=== PATIENT | male | born 1930 | race Caucasian/White ===

== ENCOUNTER 2016-05-11 12:21 | Observation (INO) | payer OTHER ==
[~2016-05-11] VITALS: Ht 177.8 cm; Wt 73.6 kg
[~2016-05-11 12:21] MED LIST: CALC500C70 PO; FINA5TAB PO; LEVO50TA PO; MISCTAB88 PO; SIMV-150 PO; TAMS0.4C38 PO
[2016-05-11] MEDS ORDERED: ALBUT/IPRATROP 3MG/0.5MG NEB 3 ML VIAL INH STA ×2 (12:51→16:09)
[2016-05-11 13:51] LABS: BASO % 0.3 %; BASO ABS # 0.03 K/uL (0-0.2); COMPLETE YES; HEMATOCRIT 49.6 % (42-52); IG% 0.3 %; LYMPH % 18.2 %; LYMPH ABS # 1.85 K/uL (1.2-3.4); MEAN CELL VOLUME 90.2 fL (80-100); MEAN CORPUSCULAR HEMOGLOBIN 32.2 pg (25-34); MEAN CORPUSCULAR HGB CONC 35.7 g/dl (32-36); MEAN PLATELET VOLUME 10.6 fL (7.4-10.4); MONO % 19.1 %; NEUT % 59.1 %; PLATELET COUNT 222 K/uL (130-400); WHITE BLOOD COUNT 10.19 K/uL (4.8-10.8)
[2016-05-11 14:11] LABS: ALT/SGPT 27 U/L (12-78); AST/SGOT 18 U/L (15-37); BLOOD UREA NITROGEN 14 mg/dl (7-18); CALCIUM 8.4 mg/dl (8.5-10.1); CARBON DIOXIDE 26 mmol/L (21-32); CHLORIDE 108 mmol/L (98-107); GLUCOSE 116 mg/dl (70-99); POTASSIUM 3.8 mmol/L (3.5-5.1); SODIUM 143 mmol/L (136-145)
--- NOTE | 2016-05-11 14:12 | DIAGNOSTIC IMAGING REPORT ---
CHEST 2 VIEWS ROUTINE CLINICAL HISTORY: Congestion. Cough. COMPARISON STUDY: No previous studies for comparison. FINDINGS: There is a 2.6 cm nodular opacity within the right midlung. Lungs are mildly diminished. There is no pneumothorax or pleural effusion. Pulmonary vascularity is normal. Cardiac size is normal. Mediastinal contours are normal. IMPRESSION: 2.6 cm nodular right midlung opacity. This could reflect a pulmonary nodule or small focus of pneumonia. If clinical suspicion for pneumonia, follow-up chest radiograph in one month is recommended to ensure resolution. Otherwise, a chest CT is recommended to evaluate for pulmonary nodule. Electronically signed by: Jose Kapadia M.D. 05/11/2016 2:10 PM Dictated Date/Time: 05/11/2016 2:08 PM
[2016-05-11 14:16] LABS: ALB/GLOB RATIO 1.1 (0.9-2); ALKALINE PHOSPHATASE 44 U/L (45-117); CKMB/CK RATIO 1.9 (0-3.0)
[2016-05-11] MEDS ORDERED: OPTIRAY 320 IV PRN (15:15)
[2016-05-11] MEDS ORDERED: CYAN500T PO (15:40)
--- NOTE | 2016-05-11 15:40 | DIAGNOSTIC IMAGING REPORT ---
CT ANGIOGRAPHY OF THE CHEST, PULMONARY EMBOLUS PROTOCOL CLINICAL HISTORY: Hypoxia, cough and congestion. Abnormal chest radiograph. COMPARISON STUDY: Chest radiograph performed earlier today. TECHNIQUE: Following IV administration of 100 mL of Optiray-320, helical axial images of the chest were obtained utilizing the pulmonary embolus protocol. Maximal intensity projections and sagittal and coronal reformats were viewed on an independent 3D workstation. IV contrast was administered without complication. CT DOSE: 321.28 mGy.cm FINDINGS: No pulmonary emboli are identified. There is no evidence of thoracic aortic dissection. The heart is mildly enlarged. There is no pericardial effusion. No pathologically enlarged thoracic lymph nodes are present. Note is made of a 3.5 x 1.9 cm subpleural groundglass opacity within the anterior segment of the right upper lobe. There is minimal tree-in-bud nodules within the right middle lobe and right lower lobe as well. Multifocal mucus plugging and bronchial wall thickening is noted. There is no pneumothorax or pleural effusion. There is no cavitation. A few gallstones are noted within the gallbladder. IMPRESSION: 1. No pulmonary emboli identified. 2. 3.5 x 1.9 cm subpleural airspace opacity within the right upper lobe suggestive of a small area of pneumonia. Follow-up chest radiograph in one month to ensure resolution is recommended. Minimal tree-in-bud opacities within the right upper, middle and lower lobes suggest an infectious process as well. 3. Diffuse bronchial wall thickening with multifocal mucus plugging, most evident within the lower lobes. 4. Cholelithiasis. Electronically signed by: Jose Kapadia M.D. 05/11/2016 3:39 PM Dictated Date/Time: 05/11/2016 3:28 PM
[2016-05-11] MEDS ORDERED: LEVAQUIN 750MG / 150ML D5W IV STA (15:59)
--- NOTE | 2016-05-11 18:24 | EMERGENCY ROOM VISIT NOTE ---
History Report prepared by Gertrudis: Sparkle Valdovinos Under the Supervision of: Dr. Alexis Giullen M.D. First contact with patient: 12:43 Chief Complaint: CONGESTION Stated Complaint: CONGESTION, COUGH Nursing Triage Summary: pt to the ED with a cough that is nonproductive since wednesday no SOB no c/o pain History of Present Illness The patient is a 85 year old male who presents to the Emergency Room with complaints of a persistent cough which started on 4 days ago. The patient reports that he has no history of lung problems and is not on oxygen. He denies shortness of breath with exertion. He denies chest pain with inspiration. He reports that he quit smoking over 60 years ago. He also reports he is experiencing slight diarrhea. Pt denies LOC, headache, fevers, chills, diaphoresis, visual changes, neck pain, chest pain, nausea, vomiting, abdominal pain, back pain, melena, hematochezia, urinary symptoms, numbness, weakness, lymphadenopathy, rash, or other complaints. Source of History: patient Onset: 4 days ago Position: other (global) Quality: other (coughing) Timing: other (persistent) Associated Symptoms: + diarrhea Review of Systems See HPI for pertinent positives and negatives. A total of ten systems were reviewed and were otherwise negative. Past Medical & Surgical Medical Problems: (1) Hypercholesteremia (2) Hyperlipemia Family History Non-contributory secondary to age. Social History Smoking Status: Former Smoker Drug Use: none Marital Status: Housing Status: lives with family Occupation Status: retired Current/Historical Medications Scheduled Calcium/Vitamin D (Os-Bairon 500 Plus D), 1 TAB PO QAM Cyanocobalamin (Vitamin B-12), 500 MCG PO DAILY Finasteride (Proscar), 5 MG PO QAM Levothyroxine Sodium (Synthroid), 50 MCG PO QAM Misc Natural Products (Osteo Bi-Flex Triple Stre), 1 TAB PO HS Simvastatin (Simvastatin), 10 MG PO QAM Tamsulosin Hcl (Flomax), 0.4 MG PO HS Allergies Coded Allergies: No Known Allergies (Unverified , 05/11/16) Physical Exam Vital Signs Date Time Temp Pulse Resp B/P Pulse Ox O2 Delivery O2 Flow Rate FiO2 05/11/16 17:31 88 05/11/16 17:21 87 20 118/72 94 Nasal Cannula 4.0 2/20/17 15:27 83 20 122/64 93 Nasal Cannula 2.0 05/11/16 14:23 88 18 113/65 90 Room Air 05/11/16 13:24 93 05/11/16 12:38 Nasal Cannula 2.0 05/11/16 12:28 90 Room Air 05/11/16 12:25 93 18 121/81 90 Room Air Physical Exam GENERAL: Awake, alert, tired-appearing, in no distress HENT: Normocephalic, atraumatic. Oropharynx unremarkable. EYES: Normal conjunctiva. Sclera non-icteric. NECK: Supple. No nuchal rigidity. FROM. No JVD. RESPIRATORY: Clear to auscultation. Moderate non-productive cough present. CARDIAC: Regular rate, normal rhythm. Extremities warm and well perfused. Pulses equal. ABDOMEN: Soft, non-distended. No tenderness to palpation. No rebound or guarding. No masses. RECTAL: Deferred. MUSCULOSKELETAL: Chest examination reveals no tenderness. The back is symmetrical on inspection without obvious abnormality. There is no CVA tenderness to palpation. No joint edema. LOWER EXTREMITIES: Calves are equal size bilaterally and non-tender. No edema. No discoloration. NEURO: Normal sensorium. No sensory or motor deficits noted. SKIN: No rash or jaundice noted. Medical Decision & Procedures ER Provider Diagnostic Interpretation: Radiology results as stated below per my review and radiologist interpretation. CHEST 2 VIEWS ROUTINE CLINICAL HISTORY: Congestion. Cough. COMPARISON STUDY: No previous studies for comparison. FINDINGS: There is a 2.6 cm nodular opacity within the right midlung. Lungs are mildly diminished. There is no pneumothorax or pleural effusion. Pulmonary vascularity is normal. Cardiac size is normal. Mediastinal contours are normal. IMPRESSION: 2.6 cm nodular right midlung opacity. This could reflect a pulmonary nodule or small focus of pneumonia. If clinical suspicion for pneumonia, follow-up chest radiograph in one month is recommended to ensure resolution. Otherwise, a chest CT is recommended to evaluate for pulmonary nodule. Electronically signed by: Jose Kapadia M.D. 05/11/2016 2:[address] ANGIOGRAPHY OF THE CHEST, PULMONARY EMBOLUS PROTOCOL CLINICAL HISTORY: Hypoxia, cough and congestion. Abnormal chest radiograph. COMPARISON STUDY: Chest radiograph performed earlier today. TECHNIQUE: Following IV administration of 100 mL of Optiray-320, helical axial images of the chest were obtained utilizing the pulmonary embolus protocol. Maximal intensity projections and sagittal and coronal reformats were viewed on an independent 3D workstation. IV contrast was administered without complication. CT DOSE: 321.28 mGy.cm FINDINGS: No pulmonary emboli are identified. There is no evidence of thoracic aortic dissection. The heart is mildly enlarged. There is no pericardial effusion. No pathologically enlarged thoracic lymph nodes are present. Note is made of a 3.5 x 1.9 cm subpleural groundglass opacity within the anterior segment of the right upper lobe. There is minimal tree-in-bud nodules within the right middle lobe and right lower lobe as well. Multifocal mucus plugging and bronchial wall thickening is noted. There is no pneumothorax or pleural effusion. There is no cavitation. A few gallstones are noted within the gallbladder. IMPRESSION: 1. No pulmonary emboli identified. 2. 3.5 x 1.9 cm subpleural airspace opacity within the right upper lobe suggestive of a small area of pneumonia. Follow-up chest radiograph in one month to ensure resolution is recommended. Minimal tree-in-bud opacities within the right upper, middle and lower lobes suggest an infectious process as well. 3. Diffuse bronchial wall thickening with multifocal mucus plugging, most evident within the lower lobes. 4. Cholelithiasis. Electronically signed by: Jose Kapadia M.D. 05/11/2016 3:39 PM Laboratory Results 05/11/16 13:15 Red Blood Count 5.50, Mean Corpuscular Volume 90.2, Mean Corpuscular Hemoglobin 32.2, Mean Corpuscular Hemoglobin Concent 35.7, Mean Platelet Volume 10.6, Neutrophils (%) (Auto) 59.1, Lymphocytes (%) (Auto) 18.2, Monocytes (%) (Auto) 19.1, Eosinophils (%) (Auto) 3.0, Basophils (%) (Auto) 0.3, Neutrophils # (Auto ) 6.02, Lymphocytes # (Auto) 1.85, Monocytes # (Auto) 1.95, Eosinophils # (Auto ) 0.31, Basophils # (Auto) 0.03 05/11/16 13:15 Test 05/11/16 13:05 05/11/16 13:15 Influenza Type A Antigen Neg for Influ A (NEG) Influenza Type B Antigen Neg for Influ B (NEG) White Blood Count 10.19 K/uL (4.8-10.8) Red Blood Count 5.50 M/uL (4.7-6.1) Hemoglobin 17.7 g/dL (14.0-18.0) Hematocrit 49.6 % (42-52) Mean Corpuscular Volume 90.2 fL (80-100) Mean Corpuscular Hemoglobin 32.2 pg (25-34) Mean Corpuscular Hemoglobin Concent 35.7 g/dl (32-36) Platelet Count 222 K/uL (130-400) Mean Platelet Volume 10.6 fL (7.4-10.4) Neutrophils (%) (Auto) 59.1 % Lymphocytes (%) (Auto) 18.2 % Monocytes (%) (Auto) 19.1 % Eosinophils (%) (Auto) 3.0 % Basophils (%) (Auto) 0.3 % Neutrophils # (Auto) 6.02 K/uL (1.4-6.5) Lymphocytes # (Auto) 1.85 K/uL (1.2-3.4) Monocytes # (Auto) 1.95 K/uL (0.11-0.59) Eosinophils # (Auto) 0.31 K/uL (0-0.5) Basophils # (Auto) 0.03 K/uL (0-0.2) RDW Standard Deviation 42.8 fL (36.4-46.3) RDW Coefficient of Variation 12.8 % (11.5-14.5) Immature Granulocyte % (Auto) 0.3 % Immature Granulocyte # (Auto) 0.03 K/uL (0.00-0.02) Anion Gap 9.0 mmol/L (3-11) Est Creatinine Clear Calc Drug Dose 50.7 ml/min Estimated GFR () 70.6 Estimated GFR (Non- 60.9 BUN/Creatinine Ratio 13.0 (10-20) Calcium Level 8.4 mg/dl (8.5-10.1) Total Bilirubin 0.5 mg/dl (0.2-1) Aspartate Amino Transf (AST/SGOT) 18 U/L (15-37) Alanine Aminotransferase (ALT/SGPT) 27 U/L (12-78) Alkaline Phosphatase 44 U/L (45-117) Total Creatine Kinase 158 U/L (39-308) Creatine Kinase MB 3.0 ng/ml (0.5-3.6) Creatine Kinase MB Ratio 1.9 (0-3.0) Troponin I < 0.015 ng/ml (0-0.045) Pro-B-Type Natriuretic Peptide 341 pg/ml (0-1800) Total Protein 7.2 gm/dl (6.4-8.2) Albumin 3.8 gm/dl (3.4-5.0) Globulin 3.4 gm/dl (2.5-4.0) Albumin/Globulin Ratio 1.1 (0.9-2) Laboratory results reviewed by me Medications Administered Medications (Trade) Dose Ordered Sig/Aram Route Start Time Stop Time Status Last Admin Dose Admin Albuterol/ Ipratropium (Duoneb) 3 ml NOW STAT INH 05/11/16 12:51 05/11/16 12:53 DC 05/11/16 13:08 3 ML Levofloxacin (Levaquin / D5W) 750 mg NOW STAT IV 05/11/16 15:59 05/11/16 16:00 DC 05/11/16 16:11 750 MG Albuterol/ Ipratropium (Duoneb) 3 ml NOW STAT INH 05/11/16 16:09 05/11/16 16:10 DC 05/11/16 16:13 3 ML ECG Indication: other (cough) Rate (beats per minute): 83 Rhythm: normal sinus Findings: no acute ischemic change, left axis deviation, no ectopy, other ( inferior and septal Q waves) ED Course 1251: The patient was evaluated in room C5. A complete history and physical exam was performed. Duoneb 3 ml INH. 1507: I reevaluated the patient. He is doing well. He still requires a cannula for oxygen. 1559: Levofloxacin 750 mg IV. 1607: I reassessed the patient. He will be given another breathing treatment. I discussed the test results and treatment plan with him. The patient will be evaluated for further management. 1609: Duoneb 3 ml INH. 1619: I discussed the patient's case with Dr. [place] [facility] [place] The patient will be evaluated for further management. Medical Decision Triage Nursing notes reviewed. The patient's presentation and history were concerning for respiratory difficulty. Etiologies such as pneumonia, COPD, reactive airway disease, CHF, cardiac ischemia, pulmonary embolism, pneumothorax, musculoskeletal, infections, gastrointestinal, as well as others were entertained. The patient was evaluated. He was treated with a DuoNeb and felt much better. The patient had chest x-ray performed and there were some concerns on the right side. His CBC, chemistry panel, cardiac markers and other blood work was unremarkable. BNP was negative. The patient was informed. The patient underwent CT imaging and this showed mucus plugging bilaterally as well as a right-sided pneumonia. He was given a second nebulizer treatment. The patient had a pulse oximetry of 90% and did have some increased work of breathing. Because of all that further evaluation and management was felt to be appropriate in the hospital. The patient was in agreement. He was given IV Levaquin. Medicine was consulted and the patient was evaluated. The chart was completed utilizing [employer] Speech voice recognition software. Grammatical errors, random word insertions, pronoun errors, and incomplete sentences are an occasional consequence of this system due to software limitations, ambient noise, and hardware issues. Any formal questions or concerns about the content, text, or information contained within the body of this dictation should be directly addressed to the physician for clarification. Consults Time Called: 1617 Consulting Physician: Dr. Kimi ELLIS Hospitalist Returned Call: 1619 We discussed the patient's case. The patient will be evaluated for further management. Impression Primary Impression: Pneumonia Additional Impression: Hypoxia Scribe Attestation The scribe's documentation has been prepared under my direction and personally reviewed by me in its entirety. I confirm that the note above accurately reflects all work, treatment, procedures, and medical decision making performed by me. Departure Information Dispostion Being Evaluated By Hospitalist Referrals Jolie Ledesma M.D. (PCP) Patient Instructions My [facility] Problem Qualifiers
--- NOTE | 2016-05-11 18:50 | Medical Student: [facility] ---
Med Student History & Physical Date & Time of Service: May 11, 2016 at 18:27 Chief Complaint: Congestion, Cough Primary Care Physician: Jolie Ledesma M.D. History of Present Illness Source: patient 85y/o male presents after four days of worsening cough and congestion. The patient states that he has had four days of dry cough, producing no sputum, that has continually gotten worse. He also admits to some minor shortness of breath, especially following coughing episodes. The patient is usually very active working in his automobile garage, but has been less active in recent days due to the cough. He has tried various cough syrups to alleviate the symptoms and states that they helped some to temporarily relieve his symptoms. In addition to the cough he has had congestion, runny nose, and some diarrhea. He has no history of PNA or recent hospitalizations. He lives at home with his . The patient denies chest pain, palpitations, body aches, fever/chills, sore throat, abdominal pain, nausea, vomiting, and blood in stool. Past Medical/Surgical History Medical Problems: (1) BPH 2. Hypothyroid 3. High cholesterol 4. Neuropathy Surgical history: 1. Left fifth finger removed following accident Family History denies Social History Smoking Status: Former Smoker Alcohol Use: occasionally Drug Use: none Marital Status: Housing status: lives with significant other Occupational Status: retired Allergies Coded Allergies: No Known Allergies (Unverified , 05/11/16) Medications Calcium/Vitamin D (Os-Bairon 500 Plus D), 1 TAB PO QAM Cyanocobalamin (Vitamin B-12), 500 MCG PO DAILY Finasteride (Proscar), 5 MG PO QAM Levothyroxine Sodium (Synthroid), 50 MCG PO QAM Misc Natural Products (Osteo Bi-Flex Triple Stre), 1 TAB PO HS Simvastatin (Simvastatin), 10 MG PO QAM Tamsulosin Hcl (Flomax), 0.4 MG PO HS Review of Systems Constitutional: No chills, No fever, No sweats, No weakness, No weight loss Eyes: No discharge, No redness, No worsening of vision ENT: + nasal symptoms, No hearing loss, No sore throat, No trouble swallowing Respiratory: + cough, + shortness of breath, No dyspnea at rest, No sputum, No wheezing Cardiovascular: No chest pain, No edema, No palpitations Abdomen: + diarrhea, No GI bleeding, No constipation, No nausea, No pain, No vomiting Musculoskeletal: No calf pain, No joint pain, No muscle pain, No swelling Neurologic: No memory loss, No paralysis, No weakness Psychiatric: No anxiety, No depression symptoms, No substance abuse Integumentary: No itch, No new/changing skin lesions, No rash Physical Exam Vital Signs (24 Hours) Date Time Temp Pulse Resp B/P Pulse Ox O2 Delivery O2 Flow Rate FiO2 05/11/16 17:31 88 05/11/16 17:21 87 20 118/72 94 Nasal Cannula 4.0 05/11/16 15:27 83 20 122/64 93 Nasal Cannula 2.0 05/11/16 14:23 88 18 113/65 90 Room Air 05/11/16 13:24 93 05/11/16 12:38 Nasal Cannula 2.0 05/11/16 12:28 90 Room Air 05/11/16 12:25 93 18 121/81 90 Room Air General Appearance: WD/WN, no apparent distress, + mild distress Head: atraumatic Eyes: normal inspection, EOMI ENT: hearing grossly normal, pharynx normal Neck: supple, no adenopathy, trachea midline Respiratory/Chest: chest non-tender, no respiratory distress, no accessory muscle use, + wheezing (bilateral, worse on right), + pertinent finding (course breath sounds) Cardiovascular: regular rate, rhythm, no edema, no murmur Abdomen/GI: normal bowel sounds, non tender, soft Back: normal inspection Extremities/Musculoskelatal: no calf tenderness, no pedal edema Neurologic/Psych: alert, normal mood/affect, oriented x 3 Skin: normal color, warm/dry, no rash Diagnostics Laboratory Results Results Past 24 Hours Test 05/11/16 13:05 05/11/16 13:15 Range/Units Influenza Type A Antigen Neg for Influ A NEG Influenza Type B Antigen Neg for Influ B NEG White Blood Count 10.19 4.8-10.8 K/uL Red Blood Count 5.50 4.7-6.1 M/uL Hemoglobin 17.7 14.0-18.0 g/dL Hematocrit 49.6 42-52 % Mean Corpuscular Volume 90.2 80-100 fL Mean Corpuscular Hemoglobin 32.2 25-34 pg Mean Corpuscular Hemoglobin Concent 35.7 32-36 g/dl Platelet Count 222 130-400 K/uL Mean Platelet Volume 10.6 7.4-10.4 fL Neutrophils (%) (Auto) 59.1 % Lymphocytes (%) (Auto) 18.2 % Monocytes (%) (Auto) 19.1 % Eosinophils (%) (Auto) 3.0 % Basophils (%) (Auto) 0.3 % Neutrophils # (Auto) 6.02 1.4-6.5 K/uL Lymphocytes # (Auto) 1.85 1.2-3.4 K/uL Monocytes # (Auto) 1.95 0.11-0.59 K/uL Eosinophils # (Auto) 0.31 0-0.5 K/uL Basophils # (Auto) 0.03 0-0.2 K/uL RDW Standard Deviation 42.8 36.4-46.3 fL RDW Coefficient of Variation 12.8 11.5-14.5 % Immature Granulocyte % (Auto) 0.3 % Immature Granulocyte # (Auto) 0.03 0.00-0.02 K/uL Sodium Level 143 136-145 mmol/L Potassium Level 3.8 3.5-5.1 mmol/L Chloride Level 108 98-107 mmol/L Carbon Dioxide Level 26 21-32 mmol/L Anion Gap 9.0 3-11 mmol/L Blood Urea Nitrogen 14 7-18 mg/dl Creatinine 1.10 0.60-1.40 mg/dl Est Creatinine Clear Calc Drug Dose 50.7 ml/min Estimated GFR () 70.6 Estimated GFR (Non- 60.9 BUN/Creatinine Ratio 13.0 10-20 Random Glucose 116 70-99 mg/dl Calcium Level 8.4 8.5-10.1 mg/dl Total Bilirubin 0.5 0.2-1 mg/dl Aspartate Amino Transf (AST/SGOT) 18 15-37 U/L Alanine Aminotransferase (ALT/SGPT) 27 12-78 U/L Alkaline Phosphatase 44 45-117 U/L Total Creatine Kinase 158 39-308 U/L Creatine Kinase MB 3.0 0.5-3.6 ng/ml Creatine Kinase MB Ratio 1.9 0-3.0 Troponin I < 0.015 0-0.045 ng/ml Pro-B-Type Natriuretic Peptide 341 0-1800 pg/ml Total Protein 7.2 6.4-8.2 gm/dl Albumin 3.8 3.4-5.0 gm/dl Globulin 3.4 2.5-4.0 gm/dl Albumin/Globulin Ratio 1.1 0.9-2 Microbiology Results 05/11/16 Blood Culture, Received Pending 05/11/16 Blood Culture, Received Pending Diagnostic Radiology CXR: IMPRESSION: 2.6 cm nodular right midlung opacity. This could reflect a pulmonary nodule or small focus of pneumonia. If clinical suspicion for pneumonia, follow-up chest radiograph in one month is recommended to ensure resolution. Otherwise, a chest CT is recommended to evaluate for pulmonary nodule. CTA of CHEST: IMPRESSION: 1. No pulmonary emboli identified. 2. 3.5 x 1.9 cm subpleural airspace opacity within the right upper lobe suggestive of a small area of pneumonia. Follow-up chest radiograph in one month to ensure resolution is recommended. Minimal tree-in-bud opacities within the right upper, middle and lower lobes suggest an infectious process as well. 3. Diffuse bronchial wall thickening with multifocal mucus plugging, most evident within the lower lobes. 4. Cholelithiasis. EKG 83bpm at NSR. Left axis deviation, inferior infarct. No previous ecg for comparison Impression Assessment and Plan 85y/o male with a four day history of worsening cough and shortness of breath, CXR and Chest CT showing signs of PNA. The patient lives at home and has not been hospitalized recently. He shows no signs of immunocompromise and will be treated for community acquired PNA. His CURB-65 score is one, and he will be admitted for inpatient treatment and IV antibiotics. The patient is ambulating well and shows no sign of weakness or disability. Therefore, no PT/OT consult was ordered. 1. Community acquired pneumonia- Administer Levofloxacin 750mg IV daily. Continue with Albuterol/Ipratropium 3ml INH for symptoms of cough and shortness of breath. Continue to monitor vital signs and labs, including kidney function. O2 by nasal canula as needed for low O2 sats and symptoms. The imaging studies suggested a one month follow up of CXR to monitor the lung opacity in the right mid lung. Blood cultures pending. 2. High cholesterol- Administer Simvastatin 10mg PO QAM. 3. BPH- Administer Finasteride 5mg PO QAM and Tamsulosin 0.4mg PO HS. 4. Hypothyroidism- Administer Levothyroxine 50mcg PO QAM. 5. Vitamin Supplementation- Administer Calcium/Vit D 1 tab PO QAM, Vitamin B12 500 mcg PO daily. Code status: The patient has a living will at home but is unsure of if he is DNR. The patient states he wishes to be a full code at this time. However, his code status may change when he is able to look at his living will. Level of Care Med/Surg Advanced Directives Existing Living Will: Yes Resuscitation Status FULL RESUSCITATION DVT Prophylaxis enoxaparin (Lovenox) SQ, T.E.D. stockings
[2016-05-11] MEDS ORDERED: ENOXAPARIN 40 MG/0.4 ML SYR SQ SCH (19:30)
[2016-05-11] MEDS ORDERED: ACETAMINOPHEN 325 MG TAB PO PRN (19:30)
[2016-05-11] MEDS ORDERED: MAGNESIUM HYDROXIDE SUSP 30 ML UDC PO PRN (19:30)
[2016-05-11] MEDS ORDERED: POLYETHYLENE (MIRALAX) 17 GM PACK PO PRN (19:30)
[2016-05-11] MEDS ORDERED: ALUMINUM/MAGNESIUM/SIMETH (MAALOX MAX) 30 ML UDC PO PRN (19:30)
[2016-05-11] MEDS: ALBUT/IPRATROP 3MG/0.5MG NEB 3 ML VIAL INH SCH (20:00)
[2016-05-11] MEDS ORDERED: TAMSULOSIN HCL 0.4 MG CAP PO SCH (21:00)
[2016-05-11] MEDS ORDERED: NON-FORMULARY MEDICATION (Misc Natural Products (Osteo Bi-Flex Triple Stre) 1 TAB) PO SCH (21:00)
[2016-05-11] MEDS ORDERED: ALBUT/IPRATROP 3MG/0.5MG NEB 3 ML VIAL INH PRN (21:00)
[2016-05-11 21:15] VITALS: O2SAT 94; Ht 177.8 cm; Wt 73.6 kg
[2016-05-11] MEDS ORDERED: METHYLPREDNISOLONE IV 80 MG in SYRINGE 0 ML IV STA (21:43)
[2016-05-11] MEDS ORDERED: IV FLUIDS COMPLETED PRN (21:45)
--- NOTE | 2016-05-11 22:39 | History and Physical ---
History & Physical obs #[id number]
[2016-05-11 22:59] VITALS: BP_SYST 157; BP_SYST 99; BP_DIAS 64; BP_DIAS 93; PULSE 108; PULSE 84; TEMP 36.5; TEMP 36.9; O2SAT 90; O2SAT 92
[2016-05-11 23:44] VITALS: BP 141/67; PULSE 84; TEMP 37; O2SAT 92
--- NOTE | 2016-05-11 23:50 | HISTORY & PHYSICAL EXAMINATION ---
DATE OF ADMISSION: 05/11/2016 CHIEF COMPLAINT: Cough and shortness of breath. HISTORY OF PRESENT ILLNESS: The patient is a very pleasant 85-year-old male who came to the hospital after 4 days of dry cough, nonproductive, gradually getting worse and more shortness of breath especially following coughing episodes. Generally, he is very active. 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 He has tried lots of calf-bet-djpgniyx and nothing really seems to be helping much. He has also had congestion, runny nose and a little bit of diarrhea. No fevers, chills or sweats interestingly however. REVIEW OF SYSTEMS: Otherwise negative, except for as above. PAST MEDICAL HISTORY: Includes; hypothyroidism, hyperlipidemia, neuropathy and BPH. PAST SURGICAL HISTORY: Includes traumatic removal of his left fifth finger. FAMILY HISTORY: He denies any significant family history. SOCIAL HISTORY: Former smoker, occasional alcohol. . Still he is active, working in his garage. ALLERGIES: No known drug allergies. MEDICATIONS: Os-Bairon plus D daily, vitamin B12 500 mcg daily, Proscar 5 mg daily, Synthroid 50 mcg daily, Osteo Bi-Flex at bedtime, simvastatin 10 mg daily and Flomax 0.4 at bedtime. PHYSICAL EXAMINATION: VITAL SIGNS: Pulse 88, respiratory rate 20, blood pressure 121/81, he is 94% on 4 liters. GENERAL: He is awake, alert, oriented x3, pleasant, in no acute distress. HEENT: Normocephalic and atraumatic. Mucous membranes are moist. CARDIOVASCULAR: Regular without rubs, murmurs or gallops. LUNGS: Clear to auscultation bilaterally except for in his right upper lung field there is a degree of scattered rales. He has no rhonchi, no wheeze. No accessory muscle use. Good effort. ABDOMEN: Soft, nondistended, nontender, no masses or organomegaly. EXTREMITIES: Without cyanosis, clubbing or edema. No calf tenderness. SKIN: Shows no rashes, no pallor or icterus. NEUROLOGIC: Shows cranial nerves II-XII to be grossly intact. Gross motor and sensory are intact. MENTAL STATE: Shows good recent and remote recall. Normal mood and affect. Good judgment and insight. LABORATORIES AND DIAGNOSTICS: CBC shows a white count of 10.19 with 59% neutrophils, hemoglobin 17.7 and platelets 222. Complete metabolic panel with sodium 143, potassium 3.8, chloride 108, CO2 26, BUN 14 and creatinine 1.1. Calcium 8.4, glucose 116, total bilirubin 0.5, AST 18, ALT 27, alkaline phosphatase 44. CK total 158 with an MB of 3. Troponin of less than 0.015. BNP of 341, total protein 7.2, albumin 3.8. Flu was negative. Chest x-ray; showed a 2.6 cm right mid lung opacity that appeared somewhat nodular, question of a nodule versus small focus of pneumonia. CT of the chest was obtained that made it appear much more consistent with pneumonia. ASSESSMENT AND PLAN: 1. Acute hypoxic respiratory failure. This appears to be due to a community-acquired pneumonia, oxygen and supportive care. Once he is able to be weaned off the oxygen or it is clear, he will need to be set up with home oxygen for the short term. He will be stable for home. 2. Community-acquired pneumonia, Levaquin has been started. We will continue this as well as nebs to help enhance pulmonary toilet and a dose of steroids given the data suggesting that older folks with pneumonia when treated with steroids are able to get home sooner. We will follow closely. 3. Hyperlipidemia. Continue his statin. 4. Benign prostatic hypertrophy. Continue his Flomax and Proscar. 5. Hypothyroidism. Continue his Synthroid. 6. Deep venous thrombosis prophylaxis, Lovenox.
[2016-05-12 00:22] LABS: URINE APPEARANCE CLEAR (CLEAR); URINE BILIRUBIN NEG (NEG); URINE COLOR YELLOW; URINE NITRITE NEG (NEG); URINE PH 5.5 (4.5-7.5); URINE SPECIFIC GRAVITY > 1.045 (1.000-1.030); UROBILINOGEN NEG (NEG)
[2016-05-12 00:32] LABS: MANUAL MICROSCOPIC REQUIRED? NO; REVIEW REQ? NO
[2016-05-12] MEDS ORDERED: LEVOTHYROXINE 50 MCG TAB PO SCH (06:30)
[2016-05-12 06:37] LABS: BASO % 0.1 %; BASO ABS # 0.01 K/uL (0-0.2); COMPLETE YES; HEMATOCRIT 48.9 % (42-52); IG% 0.4 %; LYMPH % 15.7 %; LYMPH ABS # 1.16 K/uL (1.2-3.4); MEAN CELL VOLUME 90.6 fL (80-100); MEAN CORPUSCULAR HGB CONC 35.4 g/dl (32-36); MEAN PLATELET VOLUME 10.4 fL (7.4-10.4); MONO % 2.2 %; NEUT % 81.6 %; PLATELET COUNT 218 K/uL (130-400); WHITE BLOOD COUNT 7.37 K/uL (4.8-10.8)
[2016-05-12 07:03] VITALS: BP 134/79; PULSE 88; TEMP 36.7; O2SAT 90
[2016-05-12 07:10] LABS: BUN/CREATININE RATIO 15.2 (10-20); CALCIUM 8.8 mg/dl (8.5-10.1); CREATININE 1.1 mg/dl (0.60-1.40)
[2016-05-12 07:17] VITALS: PULSE 83; O2SAT 93
[2016-05-12] MEDS: ALBUT/IPRATROP 3MG/0.5MG NEB 3 ML VIAL INH SCH (07:17)
[2016-05-12 08:00] VITALS: O2SAT 93
[2016-05-12] MEDS ORDERED: CYANOCOBALAMIN 500 MCG TAB (VIT B-12) PO SCH (09:00)
[2016-05-12] MEDS ORDERED: SIMVASTATIN 10 MG TAB PO SCH (09:00)
[2016-05-12] MEDS ORDERED: FINASTERIDE 5 MG TAB PO SCH (09:00)
[2016-05-12] MEDS ORDERED: CALCIUM 600MG + VIT D 400 IU TAB PO SCH (09:00)
[2016-05-12] MEDS ORDERED: LEVO1TAB35 PO (10:41)
--- NOTE | 2016-05-12 10:47 | Discharge Instructions ---
Discharge Instructions Admission Reason for Admission: Pneumonia Discharge Discharge Diagnosis / Problem: Acute Respiratory Failure Discharge Goals Goal(s): Decrease discomfort, Improve function Activity Recommendations Activity Limitations: resume your previous activity Lifting Limitations: gradually increase as tolerated Exercise/Sports Limitations: as tolerated Shower/Bathe: no limitations Driving or Machine Use: no limitations . Instructions / Follow-Up Instructions / Follow-Up - Follow up with Dr. Ledesma 1 week after discharge - Have follow up Chest X-ray in 1 month to ensure Right upper lobe opacity resolved - Continue Levaquin (antibiotic) for 6 more days - 1 Tab (750mg) every day - Return to the hospital if symptoms acutely worsen or you experience any fevers , chills, nausea, or vomiting Current Hospital Diet Patient's current hospital diet: Regular Diet Discharge Diet Recommended Diet: Regular Diet Pending Studies Studies pending at discharge: no Medical Emergencies . Who to Call and When: Medical Emergencies: If at any time you feel your situation is an emergency, please call 911 immediately. . Non-Emergent Contact Non-Emergency issues call your: Primary Care Provider . . "Provider Documentation" section prepared by Cyrus Velasquez. VTE Core Measure Inpt VTE Proph given/why not?: Enoxaparin (Lovenox)SQ
--- NOTE | 2016-05-12 10:55 | Discharge Summary ---
Discharge Summary Admission Date: May 11, 2016 at 18:23 Discharge Date: May 12, 2016 Discharge Disposition: Home Principal Diagnosis: Acute Respiratory Failure Problems/Secondary Diagnoses: Community Acquired Pneumonia Medication Reconciliation New Medications: Levofloxacin (Levaquin) 750 Mg Tab 750 MG PO DAILY for 6 Days, #6 TAB Continued Medications: Calcium/Vitamin D (Os-Bairon 500 Plus D) Tab 1 TAB PO QAM, TAB Cyanocobalamin (Vitamin B-12) 500 Mcg Tab 500 MCG PO DAILY, TAB Finasteride (Proscar) 5 Mg Tab 5 MG PO QAM, TAB Levothyroxine Sodium (Synthroid) 50 Mcg Tab 50 MCG PO QAM, TAB Misc Natural Products (Osteo Bi-Flex Triple Stre) 1 Tab Tab 1 TAB PO HS Simvastatin (Simvastatin) 10 Mg Tab 10 MG PO QAM Tamsulosin Hcl (Flomax) 0.4 Mg Cap 0.4 MG PO HS, CAP Discharge Exam Review of Systems: Constitutional: No chills, No fever ENT: No sore throat Respiratory: + cough, No shortness of breath, No sputum, No wheezing Cardiovascular: No chest pain, No edema Abdomen: No nausea, No pain, No vomiting Physical Exam: General Appearance: WD/WN, no apparent distress Neck: supple, no carotid bruits Respiratory/Chest: chest non-tender, lungs clear, normal breath sounds, no respiratory distress, no accessory muscle use Cardiovascular: regular rate, rhythm, no edema, no gallop, no murmur Abdomen / GI: normal bowel sounds, non tender, soft Neurologic/Psychiatric: alert, normal mood/affect, oriented x 3 Hospital Course Patient is an 85 year old male that presented with cough and shortness of breath yesterday. he has had a 4 day history of dry cough and decided to come to the ED yesterday because he was unable to catch his breath acutely during coughing episodes. The patient was 90% on room air in the ED and was placed on Oxygen. Chest X-Ray showed a questionable right upper lobe picture (nodule vs. pneumonia) so a Chest CT was performed that gave a more clear picture of a Right Upper Lobe pneumonia. The patient was started on Levaquin 750mg daily, Duoneb treatments, and was also given a dose of Methylprednisolone. The patient improved overnight, denied any shortness of breath or coughing episodes today, afebrile, and saturating well on room air. The patient was taken off of oxygen and during a brisk walk saturated at 89/90. The patient will be discharged home and will complete a 7 day course of Levaquin. The patient will also be instructed to come for a 1 month follow up chest X-ray for the right upper lobe infiltrate. Total Time Spent: Greater than 30 minutes This includes examination of the patient, discharge planning, medication reconciliation, and communication with other providers. Discharge Instructions Please refer to the electronic Patient Visit Report (Discharge Instructions) for additional information. Additional Copies To Jolie Ledesma M.D.
[2016-05-12 11:16] VITALS: BP 134/79; PULSE 83; TEMP 36.7; O2SAT 93
[2016-05-12] MEDS ORDERED: LEVOFLOXACIN / D5W 750 MG in PREMIXED IN D5W 150 ML IV SCH (16:00)
== END 2016-05-12 11:35 | disposition home or self-care (01) ==
LOC: ENRESERVDT → ENRESERVTM → C.EDB 12:23 → C.MS2W 18:23
PROVIDERS: ADMIT Family Medicine; ATTEND Internal Medicine
DX: J96.00 Acute respiratory failure, unspecified whether with hypoxia or hypercapnia (principal); J18.9 Pneumonia, unspecified organism; E03.9 Hypothyroidism, unspecified; E78.5 Hyperlipidemia, unspecified; G62.9 Polyneuropathy, unspecified; N40.0 Benign prostatic hyperplasia without lower urinary tract symptoms; Z87.891 Personal history of nicotine dependence; E78.00 Pure hypercholesterolemia, unspecified

== ENCOUNTER 2020-02-22 17:11 | Inpatient (IN) ==
--- NOTE | 2020-02-22 17:43 | Emergency Department Note ---
Impression & Plan Acute respiratory failure with hypoxemia, COVID-19, Lung cancer ED Provider Note NAME: Fannie ELLIS AGE: 89 SEX: M : 1930 ARRIVES VIA: Walk-In INFORMANT: Patient, ED PROVIDER(S): Aftab Jose MD Chief Complaint: Referral due to concern for hypoxia HPI: The patient does present after being referred from urgent care due to concern for hypoxia and fever. Patient currently denies any acute symptomatic complaints. I did ask whether or not his was concerned but he is unsure. The patient denies fevers chills chest pains or shortness of breath. Patient denies any cough. Patient states that he does get his care from the [place]. Patient denies any recent travel or sick contacts. The patient denies any loss of taste or smell. The patient is a non-smoker. The patient does not use oxygen at home. The patient does relate he does have a history of lung cancer status post radiation therapy but does not do any chemotherapy. Patient states that his appetite has been okay and the patient denies any nausea or vomiting. ROS: See HPI for pertinent positives and negatives. A total of 10 systems were reviewed and otherwise negative. Past medical history: See below Surgical history: See below Social history: See below Physical Exam: GENERAL: Wearing a mask and glasses. Nasal cannula in place. EYE EXAM: Normal conjunctiva. PERRL, no anisocoria and EOM's grossly intact w/o pain. NECK: Supple, no nuchal rigidity, no adenopathy, non-tender. No signs of meningismus. LUNGS: Crackles throughout. Normal chest wall mechanics. HEART: NSR, no MRG. ABDOMEN: Abdomen soft, non-tender, normo-active bowel sounds, no masses, no rebound or guarding. BACK: No CVA TTP. SKIN: No rashes and no bruising. UPPER EXTREMITIES: Upper extremities are grossly normal. LOWER EXTREMITIES: Grossly normal, no edema. NEURO EXAM: A&O x3, cranial nerves II-XII grossly intact, normal speech, moves all 4 extremities on command w/o issue. Differential diagnoses: Reactive airway disease, pneumonia, pneumothorax, COPD, CHF, infections, cardiac ischemia, pulmonary embolism, musculoskeletal, gastrointestinal, as well as other pathologies. Course: Patient was seen and evaluated the bedside. Full history physical exam was performed. EKG: Indication: Shortness of breath Sinus tachycardia, rate 104, normal intervals, left axis deviation, Q waves anteriorly. Imaging Studies: Radiology results as stated below per my review in the radiologist's interpretation: XR chest 1V portable CLINICAL HISTORY: SEPSIS COMPARISON STUDY: PET CT scan dated 01/03/2020 FINDINGS: The heart is at the upper limits of normal in size. There is aortic tortuosity. There are peripheral right midlung zone opacities, consistent with treated neoplasm. There is no acute parenchymal consolidation. There is no failure. There are no pleural effusions.[ IMPRESSION: 1. No acute findings 2. 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 Electronically signed by: Rusty Dhaliwal M.D. 02/22/2020 7:10 PM Dictated: 02/22/201906 Transcribed: 02/22/201906 Cardiac monitoring: An order was placed for continuous cardiac monitoring. The monitor shows a rate of 95 with sinus rhythm. MDM: Patient did present with concern for hypoxia and fever. The patient did have blood work completed along with kidney function Covid testing and flu testing. The patient was ordered IV fluids. The patient has a normal white count H&H and platelet count. Patient does have mild lymphopenia. Kidney function unremarkable. The patient is positive for Covid flu negative. The patient was ordered dexamethasone, IVF, and additional antipyretics. I did speak the on- call hospitalist Dr. Aiken and the patient was admitted to the medicine service. Patient was tolerating 2 L nasal cannula and was comfortable. Critical Care: I have personally spent 55 minutes of critical care time in direct management of this patient. This includes bedside care, interpretation of diagnostic studi es, and testing, discussion with consultants, patient, and family members, and other require inpatient management activities. This 55 minutes is in excess of all separately billable procedures. 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 Brother Pneumonia Sister Heart disease Sister Breast cancer Sister Colorectal cancer Son No problems noted. 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 Feels Safe at Home: Yes caffeine: No during the past year weight has: remained stable Allergies Allergies Allergy/AdvReac Type Severity Reaction Status Date / Time No Known Allergies Allergy Verified 02/22/20 19:26 Home Meds Home Medications Medication Instructions Recorded Confirmed finasteride 5 mg tablet 5 mg PO QPM 05/16/19 02/22/20 levothyroxine 75 mcg capsule 75 mcg PO QAM 05/16/19 02/22/20 simvastatin 20 mg tablet 10 mg PO QPM tab 05/16/19 02/22/20 tamsulosin 0.4 mg capsule 0.4 mg PO QPM 05/16/19 02/22/20 diphenhydramine HCl 50 mg capsule 50 mg PO HS cap 12/27/19 02/22/20 Results & Data (ED) Vital Signs Vital Signs - 24 hr 02/22/20 17:27 02/22/20 17:40 02/22/20 17:50 Temperature 38.0 C H Temperature Source Oral Pulse Rate 106 H 113 H 105 H Pulse Rate from SpO2 Sensor 101 H 105 H Respiratory Rate 20 20 29 H Respiratory Effort / Characteristics Non-Labored Respiratory Depth Normal Blood Pressure 117/71 136/74 Blood Pressure Mean 86 86 Blood Pressure Position Sitting Pulse Oximetry 87 L 93 93 Oxygen Delivery Method Room Air Nasal Cannula Nasal Cannula Oxygen Flow Rate 2 2 Sepsis Recent Fever Within 48 Hours Yes Sepsis New/Unexplained Change in Mental Status No Sepsis Action Taken by Nursing No Action Required 02/22/20 18:00 02/22/20 18:10 02/22/20 18:20 Temperature Temperature Source Pulse Rate 99 H 99 H 96 H Pulse Rate from SpO2 Sensor 99 H 102 H 96 H Respiratory Rate 30 H 23 22 Respiratory Effort / Characteristics Respiratory Depth Blood Pressure 132/72 Blood Pressure Mean 98 Blood Pressure Position Pulse Oximetry 96 91 92 Oxygen Delivery Method Nasal Cannula Oxygen Flow Rate 2 Sepsis Recent Fever Within 48 Hours Sepsis New/Unexplained Change in Mental Status Sepsis Action Taken by Nursing 02/22/20 18:30 02/22/20 18:31 02/22/20 18:40 Temperature Temperature Source Pulse Rate 102 H 120 H 101 H Pulse Rate from SpO2 Sensor 97 H 102 H 90 Respiratory Rate 21 19 Respiratory Effort / Characteristics Respiratory Depth Blood Pressure 151/145 H Blood Pressure Mean 146 Blood Pressure Position Pulse Oximetry 90 92 Oxygen Delivery Method Oxygen Flow Rate Sepsis Recent Fever Within 48 Hours Sepsis New/Unexplained Change in Mental Status Sepsis Action Taken by Nursing 02/22/20 18:50 02/22/20 19:00 02/22/20 19:01 Temperature Temperature Source Pulse Rate 94 H 95 H 131 H Pulse Rate from SpO2 Sensor 95 H 95 H 106 H Respiratory Rate 23 18 Respiratory Effort / Characteristics Respiratory Depth Blood Pressure 111/84 Blood Pressure Mean 87 Blood Pressure Position Pulse Oximetry 90 90 Oxygen Delivery Method Oxygen Flow Rate Sepsis Recent Fever Within 48 Hours Sepsis New/Unexplained Change in Mental Status Sepsis Action Taken by Nursing 02/22/20 19:10 02/22/20 19:20 02/22/20 19:30 Temperature Temperature Source Pulse Rate 101 H 99 H 95 H Pulse Rate from SpO2 Sensor 100 H 100 H 88 Respiratory Rate 22 22 Respiratory Effort / Characteristics Respiratory Depth Blood Pressure 131/81 Blood Pressure Mean 116 Blood Pressure Position Pulse Oximetry 93 93 93 Oxygen Delivery Method Nasal Cannula Nasal Cannula Nasal Cannula Oxygen Flow Rate 2 2 2 Sepsis Recent Fever Within 48 Hours Sepsis New/Unexplained Change in Mental Status Sepsis Action Taken by Usp Medications Current Medication List: was personally reviewed by me Laboratory Data Attestation: I reviewed the patient's lab results. Result diagrams: 02/22/20 18:09 02/22/20 18:09 Lab Results 02/22/20 02/22/20 02/22/20 Range/Units 17:55 17:55 18:09 WBC 6.55 (4.8-10.8) K/uL RBC 4.76 (4.7-6.1) M/uL Hgb 15.1 (14.0-18.0) g/dL Hct 44.4 (42-52) % MCV 93.3 (80-100) fL MCH 31.7 (25-34) pg MCHC 34.0 (32-36) g/dL RDW Std Deviation 43.5 (36.4-46.3) fL RDW Coeff of Bam 12.8 (11.5-14.5) % Plt Count 189 (130-400) K/uL MPV 10.0 (7.4-10.4) fL Immature Gran % (Auto) 0.3 % Neut % (Auto) 60.7 % Lymph % (Auto) 15.7 % [place] % (Auto) 22.9 % Eos % (Auto) 0.2 % Baso % (Auto) 0.2 % Neut # (Auto) 3.98 (1.4-6.5) K/uL Lymph # (Auto) 1.03 L (1.2-3.4) K/uL [place] # (Auto) 1.50 H (0.11-0.59) K/uL Eos # (Auto) 0.01 (0-0.5) K/uL Baso # (Auto) 0.01 (0-0.2) K/uL Immature Gran # (Auto) 0.02 (0.00-0.02) K/uL PT (9.0-12.0) Seconds INR (0.9-1.1) APTT (21.0-31.0) Seconds PTT Ratio D-Dimer (0-500) ug/L FEU Sodium (136-145) mmol/L Potassium (3.5-5.1) mmol/L Chloride (98-107) mmol/L Carbon Dioxide (21-32) mmol/L Anion Gap (3-11) BUN (7-18) mg/dl Creatinine (0.6-1.4) mg/dl Est Cr Clr Drug Dosing ml/min Est GFR ( Amer) Est GFR (Non-Af Amer) BUN/Creatinine Ratio (10-20) Glucose (70-99) mg/dl Lactate (0.4-2.0) mmol/L Calcium (8.5-10.1) mg/dl Magnesium (1.8-2.4) mg/dl Total Bilirubin (0.2-1) mg/dl AST (15-37) U/L ALT (12-78) U/L Alkaline Phosphatase (45-117) U/L Troponin I (0-0.045) ng/ml Total Protein (6.4-8.2) gm/dl Albumin (3.4-5.0) gm/dl Globulin (2.5-4.0) gm/dl Albumin/Globulin Ratio (0.9-2) Procalcitonin (0-0.5) ng/ml COVID-19 Eval [facility] A Molecular Assay (Negative) Influ B Molecular Assay (Negative) SARS-CoV-2, RNA, NAAT POSITIVE A* (NEGATIVE) Blood Type Antibody Screen 02/22/20 02/22/20 02/22/20 Range/Units 18:09 18:09 18:09 WBC (4.8-10.8) K/uL RBC (4.7-6.1) M/uL Hgb (14.0-18.0) g/dL Hct (42-52) % MCV (80-100) fL MCH (25-34) pg MCHC (32-36) g/dL RDW Std Deviation (36.4-46.3) fL RDW Coeff of Bam (11.5-14.5) % Plt Count (130-400) K/uL MPV (7.4-10.4) fL Immature Gran % (Auto) % Neut % (Auto) % Lymph % (Auto) % [place] % (Auto) % Eos % (Auto) % Baso % (Auto) % Neut # (Auto) (1.4-6.5) K/uL Lymph # (Auto) (1.2-3.4) K/uL [place] # (Auto) (0.11-0.59) K/uL Eos # (Auto) (0-0.5) K/uL Baso # (Auto) (0-0.2) K/uL Immature Gran # (Auto) (0.00-0.02) K/uL PT 11.1 (9.0-12.0) Seconds INR 1.1 (0.9-1.1) APTT 31.6 H (21.0-31.0) Seconds PTT Ratio 1.1 D-Dimer (0-500) ug/L FEU Sodium 136 (136-145) mmol/L Potassium 3.9 (3.5-5.1) mmol/L Chloride 103 (98-107) mmol/L Carbon Dioxide 26 (21-32) mmol/L Anion Gap 7.0 (3-11) BUN 19 H (7-18) mg/dl Creatinine 1.15 (0.6-1.4) mg/dl Est Cr Clr Drug Dosing 43.2 ml/min Est GFR ( Amer) 65.0 Est GFR (Non-Af Amer) 56.1 BUN/Creatinine Ratio 16.7 (10-20) Glucose 119 H (70-99) mg/dl Lactate 1.0 (0.4-2.0) mmol/L Calcium 8.6 (8.5-10.1) mg/dl Magnesium 2.1 (1.8-2.4) mg/dl Total Bilirubin 0.7 (0.2-1) mg/dl AST 23 (15-37) U/L ALT 20 (12-78) U/L Alkaline Phosphatase 42 L (45-117) U/L Troponin I < 0.015 (0-0.045) ng/ml Total Protein 6.9 (6.4-8.2) gm/dl Albumin 3.2 L (3.4-5.0) gm/dl Globulin 3.7 (2.5-4.0) gm/dl Albumin/Globulin Ratio 0.9 (0.9-2) Procalcitonin (0-0.5) ng/ml COVID-19 Eval Order Influ A Molecular Assay (Negative) Influ B Molecular Assay (Negative) SARS-CoV-2, RNA, NAAT (NEGATIVE) Blood Type Antibody Screen 02/22/20 02/22/20 02/22/20 Range/Units 18:09 18:09 18:24 WBC (4.8-10.8) K/uL RBC (4.7-6.1) M/uL Hgb (14.0-18.0) g/dL Hct (42-52) % MCV (80-100) fL MCH (25-34) pg MCHC (32-36) g/dL RDW Std Deviation (36.4-46.3) fL RDW Coeff of Bam (11.5-14.5) % Plt Count (130-400) K/uL MPV (7.4-10.4) fL Immature Gran % (Auto) % Neut % (Auto) % Lymph % (Auto) % [place] % (Auto) % Eos % (Auto) % Baso % (Auto) % Neut # (Auto) (1.4-6.5) K/uL Lymph # (Auto) (1.2-3.4) K/uL [place] # (Auto) (0.11-0.59) K/uL Eos # (Auto) (0-0.5) K/uL Baso # (Auto) (0-0.2) K/uL Immature Gran # (Auto) (0.00-0.02) K/uL PT (9.0-12.0) Seconds INR (0.9-1.1) APTT (21.0-31.0) Seconds PTT Ratio D-Dimer 1010 H* (0-500) ug/L FEU Sodium (136-145) mmol/L Potassium (3.5-5.1) mmol/L Chloride (98-107) mmol/L Carbon Dioxide (21-32) mmol/L Anion Gap (3-11) BUN (7-18) mg/dl Creatinine (0.6-1.4) mg/dl Est Cr Clr Drug Dosing ml/min Est GFR ( Amer) Est GFR (Non-Af Amer) BUN/Creatinine Ratio (10-20) Glucose (70-99) mg/dl Lactate (0.4-2.0) mmol/L Calcium (8.5-10.1) mg/dl Magnesium (1.8-2.4) mg/dl Total Bilirubin (0.2-1) mg/dl AST (15-37) U/L ALT (12-78) U/L Alkaline Phosphatase (45-117) U/L Troponin I (0-0.045) ng/ml Total Protein (6.4-8.2) gm/dl Albumin (3.4-5.0) gm/dl Globulin (2.5-4.0) gm/dl Albumin/Globulin Ratio (0.9-2) Procalcitonin < 0.05 (0-0.5) ng/ml COVID-19 Eval Order Influ A Molecular Assay Negative (Negative) Influ B Molecular Assay Negative (Negative) SARS-CoV-2, RNA, NAAT (NEGATIVE) Blood Type Antibody Screen 02/22/20 Range/Units 19:20 WBC (4.8-10.8) K/uL RBC (4.7-6.1) M/uL Hgb (14.0-18.0) g/dL Hct (42-52) % MCV (80-100) fL MCH (25-34) pg MCHC (32-36) g/dL RDW Std Deviation (36.4-46.3) fL RDW Coeff of Bam (11.5-14.5) % Plt Count (130-400) K/uL MPV (7.4-10.4) fL Immature Gran % (Auto) % Neut % (Auto) % Lymph % (Auto) % [place] % (Auto) % Eos % (Auto) % Baso % (Auto) % Neut # (Auto) (1.4-6.5) K/uL Lymph # (Auto) (1.2-3.4) K/uL [place] # (Auto) (0.11-0.59) K/uL Eos # (Auto) (0-0.5) K/uL Baso # (Auto) (0-0.2) K/uL Immature Gran # (Auto) (0.00-0.02) K/uL PT (9.0-12.0) Seconds INR (0.9-1.1) APTT (21.0-31.0) Seconds PTT Ratio D-Dimer (0-500) ug/L FEU Sodium (136-145) mmol/L Potassium (3.5-5.1) mmol/L Chloride (98-107) mmol/L Carbon Dioxide (21-32) mmol/L Anion Gap (3-11) BUN (7-18) mg/dl Creatinine (0.6-1.4) mg/dl Est Cr Clr Drug Dosing ml/min Est GFR ( Amer) Est GFR (Non-Af Amer) BUN/Creatinine Ratio (10-20) Glucose (70-99) mg/dl Lactate (0.4-2.0) mmol/L Calcium (8.5-10.1) mg/dl Magnesium (1.8-2.4) mg/dl Total Bilirubin (0.2-1) mg/dl AST (15-37) U/L ALT (12-78) U/L Alkaline Phosphatase (45-117) U/L Troponin I (0-0.045) ng/ml Total Protein (6.4-8.2) gm/dl Albumin (3.4-5.0) gm/dl Globulin (2.5-4.0) gm/dl Albumin/Globulin Ratio (0.9-2) Procalcitonin (0-0.5) ng/ml COVID-19 Eval Order Influ A Molecular Assay (Negative) Influ B Molecular Assay (Negative) SARS-CoV-2, RNA, NAAT (NEGATIVE) Blood Type A Positive Antibody Screen NEGATIVE Administered Medications Discontinued Medications Acetaminophen (Acetaminophen 500 Mg Tab) 1,000 mg PO NOW STA Stop: 02/22/20 19:19 Last Admin: 02/22/20 19:28 Dose: 1,000 mg Documented by: [id number] Dexamethasone (Dexamethasone Sod Inj 10 Mg/Ml Vial) 6 mg IV NOW ONE Stop: 02/22/20 19:19 Last Admin: 02/22/20 19:28 Dose: 6 mg Documented by: [id number] Sodium Chloride (Nss 1000ml) 1,000 mls @ 999 mls/hr IV .[id number] ASHLEY Stop: 02/22/20 19:30 Last Infusion: 02/22/20 19:21 Dose: 0 mls/hr Documented by: [id number] Admin: 02/22/20 18:19 Dose: 999 mls/hr Documented by: [id number] Sodium Chloride (Nss 1000ml) 500 mls @ 999 mls/hr IV .Q31M ONE Stop: 02/22/20 19:48 Last Admin: 02/22/20 19:29 Dose: 999 mls/hr Documented by: [id number] Discharge Plan Visit Data Chief Complaint: Flu Like Symptoms Stated Complaint: WEAKNESS, LOW PULSE OX, FEVER ED Provider: Aftab Jose Discharge Problem: Acute respiratory failure with hypoxemia, COVID-19, Lung cancer Forms Stand Alone Forms: [facility] Prescriptions Prescriptions: No Action diphenhydramine HCl [NightTime Sleep Aid (diphen)] 50 mg capsule 50 mg PO HS RF: 0 finasteride 5 mg tablet 5 mg PO QPM RF: 0 levothyroxine 75 mcg capsule 75 mcg PO QAM RF: 0 simvastatin 20 mg tablet 10 mg PO QPM RF: 0 tamsulosin 0.4 mg capsule 0.4 mg PO QPM RF: 0 Discharge Problem: Lung cancer Qualifiers: Laterality: right Lung location: middle lobe of lung Qualified Code(s): C34.2 - Malignant neoplasm of middle lobe, bronchus or lung
[2020-02-22 18:28] LABS: Basophils # (auto) 0.01 K/uL (0-0.2); Basophils % (auto) 0.2 %; Eosinophils # (auto) 0.01 K/uL (0-0.5); Eosinophils % (auto) 0.2 %; Hematocrit (blood only) 44.4 % (42-52); Hemoglobin 15.1 g/dL (14.0-18.0); Immature Granulocytes # (auto) 0.02 K/uL (0.00-0.02); Immature Granulocytes % (auto) 0.3 %; Lymphocytes # (auto) 1.03 K/uL (1.2-3.4); Lymphocytes % (auto) 15.7 %; Mean Corpuscular Hemoglobin 31.7 pg (25-34); Mean Corpuscular Volume 93.3 fL (80-100); Monocytes % (auto) 22.9 %; Neutrophils # (auto) 3.98 K/uL (1.4-6.5); Neutrophils % (auto) 60.7 %; Platelet Count 189 K/uL (130-400); RDW Coefficient of Variation 12.8 % (11.5-14.5); RDW Standard Deviation 43.5 fL (36.4-46.3); Red Blood Count 4.76 M/uL (4.7-6.1); White Blood Count 6.55 K/uL (4.8-10.8)
[2020-02-22] MEDS ORDERED: SODIUM CHLORIDE 0.9% 1000ML 1,000 ML IV SCH (18:30)
[2020-02-22 18:47] LABS: Alanine Aminotransferase 20 U/L (12-78); Albumin Level 3.2 gm/dl (3.4-5.0); Aspartate Aminotransferase 23 U/L (15-37); BUN Creatinine Ratio 16.7 (10-20); Blood Urea Nitrogen 19 mg/dl (7-18); Calcium 8.6 mg/dl (8.5-10.1); Carbon Dioxide 26 mmol/L (21-32); Chloride 103 mmol/L (98-107); Creatinine Clr Calc Pharmacy 43.2 ml/min; Est GFR (Non-African American) 56.1; Glucose 119 mg/dl (70-99); Magnesium 2.1 mg/dl (1.8-2.4); Potassium 3.9 mmol/L (3.5-5.1); Sodium 136 mmol/L (136-145)
[2020-02-22 18:51] LABS: Albumin Globulin Ratio 0.9 (0.9-2); Alkaline Phosphatase 42 U/L (45-117); Bilirubin,Total 0.7 mg/dl (0.2-1); Globulin 3.7 gm/dl (2.5-4.0); Total Protein 6.9 gm/dl (6.4-8.2); Troponin I < 0.015 ng/ml (0-0.045)
[2020-02-22 19:06] LABS: INR 1.1 (0.9-1.1); Partial Thromboplastin Ratio 1.1; Partial Thromboplastin Time 31.6 Seconds (21.0-31.0); Prothrombin Time 11.1 Seconds (9.0-12.0)
--- NOTE | 2020-02-22 19:11 | XRay Report ---
XR chest 1V portable CLINICAL HISTORY: SEPSIS COMPARISON STUDY: PET CT scan dated 01/03/2020 FINDINGS: The heart is at the upper limits of normal in size. There is aortic tortuosity. There are p eripheral right midlung zone opacities, consistent with treated neoplasm. There is no acute parenchym al consolidation. There is no failure. There are no pleural effusions.[ IMPRESSION: 1. No acute findings 2. Right midlung zone peripheral opacities, consistent with the patient's known right upper lobe neop lasm status post radiation therapy ACT 112: Negative or not required by law. Electronically signed by: Rusty Dhaliwal M.D. 02/22/2020 7:10 PM
[2020-02-22] MEDS ORDERED: ACETAMINOPHEN 500 MG TAB PO STA (19:18)
[2020-02-22] MEDS ORDERED: DEXAMETHASONE SOD INJ 10 MG/ML VIAL IV ONE (19:18)
[2020-02-22] MEDS ORDERED: SODIUM CHLORIDE 0.9% 1000ML 500 ML IV ONE (19:18)
[2020-02-22 19:22] LABS: Influenza A virus by PCR Negative (Negative); Influenza B virus by PCR Negative (Negative)
[2020-02-22 20:34] LABS: D Dimer 1010 ug/L FEU (0-500)
--- NOTE | 2020-02-22 20:50 | History & Physical Report ---
Date of Service February 22, 2020 Assessment & Plan (1) Pneumonia due to COVID-19 virus: Pneumonia due to COVID-19 virus/acute respiratory failure with hypoxemia- Admit to monitored bed Decadron 6 mg IV daily Remdesivir IV per protocol Ventolin HFA 2 puffs 4 times daily and every 2 hours as needed Nasal cannula oxygen, titrate to keep pulse ox 94 to 95% Chest x-ray demonstrated right upper lobe scarring associated with treatment by radiation for malignancy CT angiography PE protocol shows opacities suggestive of COVID-19 virus, without PE Present on Admission?: Yes (2) Acute respiratory failure with hypoxemia: See above Present on Admission?: Yes (3) Elevated d-dimer: D-dimer elevated at 1010. CT angiography PE protocol negative for PE Present on Admission?: Yes (4) Malignant neoplasm of right upper lobe of lung: (5) Hyperlipemia: Continue simvastatin 10 mg daily Present on Admission?: Yes (6) BPH (benign prostatic hyperplasia): Continue finasteride 5 mg every evening and tamsulosin 0.4 mg every evening Present on Admission?: Yes (7) Hypothyroidism: Continue levothyroxine 75 mcg every morning Present on Admission?: Yes History of Present Illness Chief Complaint: The patient presents to the emergency department as a referral from urgent care due to concerns for fever and hypoxia. Primary Care Provider: Quoc Colunga The patient is an 89-year-old male with a past medical history including lung cancer involving right upper lobe of lung, mediastinal adenopathy, BPH with LUTS, acquired hypothyroidism, hyperlipidemia and insomnia. He presents to the emergency department as referral from urgent care for fever and hypoxia. The patient himself denies any symptomatology of any sort. His called the DE today, who was unable to see the patient, but referred him to acute care. Acute care then referred him to the emergency department due to the above symptoms. The patient denies chest pain, shortness of breath, loss of taste or smell, fatigue, and cannot explain why there was originally a call to the DE, and why he was sent to the ED from acute care. 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 Brother Pneumonia Sister Heart disease Sister Breast cancer Sister Colorectal cancer Son No problems noted. 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 The patient denies chest pain, palpitations, shortness of breath, dyspnea on exertion, cough, lower extremity swelling, sore throat, fevers, chills, sweats, fatigue, nausea, vomiting, diarrhea , constipation, abdominal pain, pelvic pain, blood in urine or stool, dysuria, urinary frequency or urgency, lightheadedness, dizziness, headache, memory loss, loss of consciousness, rash, abnormal bruising or bleeding, imbalance, focal or generalized weakness, numbness or tingling in arms or legs, generalized arthralgias or myalgias, back or neck pain, or night sweats. The review of systems is otherwise negative other than for that already noted above, and at least 10 systems have been reviewed. However, he is hypoxic, and suspect that he has an element of delirium. Physical Exam Physical Exam: The patient is awake, answers questions, but denies any symptoms, normocephalic and atraumatic, lying in bed and in no acute distress. HEENT--PERRL, EOMI, mucous membranes and oropharynx normal Neck--supple. No JVD. No bruits. Thyroid normal, trachea midline, no adenopathy. Heart--normal S1 and S2. No murmurs, rubs or gallops. Lungs--coarse breath sounds bilaterally. No respiratory distress, no accessory muscle use. Abdomen--normal bowel sounds and soft. Nontender. Nondistended, no hernias or masses, no organomegaly. Extremities--no cyanosis or clubbing. No edema. Dermatologic--normal skin turgor, normal color, no abnormal lymph nodes, no rash. Neurologic--cranial nerves II through XII grossly intact. Rheumatologic--normal range of motion. Psychiatric--normal affect. Results & Data Results & Data ([facility]) Vital Signs (Past 12 Hours) Vital Signs Temp Pulse Resp BP Pulse Ox 02/22/20 19:30 95 H 22 131/81 93 02/22/20 19:20 99 H 22 93 02/22/20 19:10 101 H 93 02/22/20 19:01 131 H 18 111/84 90 02/22/20 19:00 95 H 90 02/22/20 18:50 94 H 23 02/22/20 18:40 101 H 02/22/20 18:31 120 H 19 151/145 H 92 02/22/20 18:30 102 H 21 90 02/22/20 18:20 96 H 22 92 02/22/20 18:10 99 H 23 91 02/22/20 18:00 99 H 30 H 132/72 96 02/22/20 17:50 105 H 29 H 93 02/22/20 17:40 113 H 20 136/74 93 02/22/20 17:27 100.4 F H 106 H 20 117/71 87 L Laboratory Results Laboratory Results WBC 6.55 K/uL (4.8-10.8) 02/22/20 18:09 RBC 4.76 M/uL (4.7-6.1) 02/22/20 18:09 Hgb 15.1 g/dL (14.0-18.0) 02/22/20 18:09 Hct 44.4 % (42-52) 02/22/20 18:09 MCV 93.3 fL (80-100) 02/22/20 18:09 MCH 31.7 pg (25-34) 02/22/20 18:09 MCHC 34.0 g/dL (32-36) 02/22/20 18:09 RDW Std Deviation 43.5 fL (36.4-46.3) 02/22/20 18:09 RDW Coeff of Bam 12.8 % (11.5-14.5) 02/22/20 18:09 Plt Count 189 K/uL (130-400) 02/22/20 18:09 MPV 10.0 fL (7.4-10.4) 02/22/20 18:09 Immature Gran % (Auto) 0.3 % 02/22/20 18:09 Neut % (Auto) 60.7 % 02/22/20 18:09 Lymph % (Auto) 15.7 % 02/22/20 18:09 [place] % (Auto) 22.9 % 02/22/20 18:09 Eos % (Auto) 0.2 % 02/22/20 18:09 Baso % (Auto) 0.2 % 02/22/20 18:09 Neut # (Auto) 3.98 K/uL (1.4-6.5) 02/22/20 18:09 Lymph # (Auto) 1.03 K/uL (1.2-3.4) L 02/22/20 18:09 [place] # (Auto) 1.50 K/uL (0.11-0.59) H 02/22/20 18:09 Eos # (Auto) 0.01 K/uL (0-0.5) 02/22/20 18:09 Baso # (Auto) 0.01 K/uL (0-0.2) 02/22/20 18:09 Immature Gran # (Auto) 0.02 K/uL (0.00-0.02) 02/22/20 18:09 PT 11.1 Seconds (9.0-12.0) 02/22/20 18:09 INR 1.1 (0.9-1.1) 02/22/20 18:09 APTT 31.6 Seconds (21.0-31.0) H 02/22/20 18:09 PTT Ratio 1.1 02/22/20 18:09 D-Dimer 1010 ug/L FEU (0-500) H* 02/22/20 18:09 Sodium 136 mmol/L (136-145) 02/22/20 18:09 Potassium 3.9 mmol/L (3.5-5.1) 02/22/20 18:09 Chloride 103 mmol/L (98-107) 02/22/20 18:09 Carbon Dioxide 26 mmol/L (21-32) 02/22/20 18:09 Anion Gap 7.0 (3-11) 02/22/20 18:09 BUN 19 mg/dl (7-18) H 02/22/20 18:09 Creatinine 1.15 mg/dl (0.6-1.4) 02/22/20 18:09 Est Cr Clr Drug Dosing 43.2 ml/min 02/22/20 18:09 Est GFR ( Amer) 65.0 02/22/20 18:09 Est GFR (Non-Af Amer) 56.1 02/22/20 18:09 BUN/Creatinine Ratio 16.7 (10-20) 02/22/20 18:09 Glucose 119 mg/dl (70-99) H 02/22/20 18:09 Lactate 1.0 mmol/L (0.4-2.0) 02/22/20 18:09 Calcium 8.6 mg/dl (8.5-10.1) 02/22/20 18:09 Magnesium 2.1 mg/dl (1.8-2.4) 02/22/20 18:09 Total Bilirubin 0.7 mg/dl (0.2-1) 02/22/20 18:09 AST 23 U/L (15-37) 02/22/20 18:09 ALT 20 U/L (12-78) 02/22/20 18:09 Alkaline Phosphatase 42 U/L (45-117) L 02/22/20 18:09 Troponin I < 0.015 ng/ml (0-0.045) 02/22/20 18:09 Total Protein 6.9 gm/dl (6.4-8.2) 02/22/20 18:09 Albumin 3.2 gm/dl (3.4-5.0) L 02/22/20 18:09 Globulin 3.7 gm/dl (2.5-4.0) 02/22/20 18:09 Albumin/Globulin Ratio 0.9 (0.9-2) 02/22/20 18:09 Procalcitonin < 0.05 ng/ml (0-0.5) 02/22/20 18:09 Urine Color Yellow 02/23/20 01:32 Urine Appearance Clear (Clear) 02/23/20 01:32 Urine pH 5.0 (4.5-7.5) 02/23/20 01:32 Ur Specific [place] 1.037 (1.000-1.030) H 02/23/20 01:32 Urine Protein Negative (Negative) 02/23/20 01:32 Urine Glucose (UA) Negative (Negative) 02/23/20 01:32 Urine Ketones Trace (Negative) H 02/23/20 01:32 Urine Blood Negative (Negative) 02/23/20 01:32 Urine Nitrite Negative (Negative) 02/23/20 01:32 Urine Bilirubin Negative (Negative) 02/23/20 01:32 Urine Urobilinogen Negative (Negative) 02/23/20 01:32 Ur Leukocyte Esterase Negative (Negative) 02/23/20 01:32 COVID-19 Eval Order Covid19 IDNow Count includes the [facility] 02/22/20 17:55 Influ A Molecular Assay Negative (Negative) 02/22/20 18:24 Influ B Molecular Assay Negative (Negative) 02/22/20 18:24 SARS-CoV-2, RNA, NAAT POSITIVE (NEGATIVE) A* 02/22/20 17:55 Blood Type A Positive 02/22/20 19:20 Antibody Screen NEGATIVE 02/22/20 19:20 Diagnostic Findings [facility] Patient: Fannie ELLIS (Male) : 30 Status: ER Date: 02/22/20 22:06 Room #: History: positive covid, shortness of breath, rule out pe Slices: [phone] Priors: Tech: Kezia Aguilar @ [phone] Exams: CTA CHEST Contrast: IV Amt: 116ml of optiray 320 Accession Numbers: [id number] Preliminary Findings Only See Final Report For Complete Findings CTA CHEST: Patchy airspace opacities suggesting pneumonitis, likely from coronavirus in this clinical setting. Peripheral RUL infiltrate could also be infectious, but is somewhat more nodular. Consider follow-up as neoplasm is not completely excluded. Dilated right and left pulmonary arteries suggesting hypertension. No PE. Aortic atherosclerosis. No dissection or other acute syndrome. Mediastinal lymph nodes, presumably reactive. Trace pericardial effusion. Radiologist: Pedro Ross M.D. Study ready at 22:08 and initial results transmitted at 22:20 *This report constitutes a preliminary interpretation only. Non-acute findings felt to be unrelated to the clinical presentation may not be discussed in this report. The study will be interpreted and a final report will be generated by the local Radiologist the following shift. To reach the hospital radiology department call [phone]. If a discrepancy is found between the preliminary and final interpretations of this study, please notify us via our Client Portal at [employer] [email or web address] under QA Exams.You can also fax this report with a description of the discrepancy, or include the final report, to our daytime fax number [phone].If faxing, please indicate the severity of discrepancy using one of the following categories: [ ] 1 - Agree/Informational [ ] 2 - Unlikely to Affect Management [ ] 3 - Possible Eventual Change of Management [ ] 4 - Probable Immediate Change of Management For all other patient related information, please fax us at [phone]. [id number] Code Status & VTE Plan Code Status Full code VTE Prophylaxis Plan VTE Prophylaxis will be ordered: Yes PG Care Time/CCT Total # of Minutes Spent Total Time Spent with Patient: Total time spent is greater than 50% in coordination of care (as documented) at patient's floor/unit and/or counseling patient: Coding Level of Care Code 64974 Initial Inpt Care Lvl 3 Diagnoses Pneumonia due to COVID-19 virus U07.1; J12.89 Acute respiratory failure with hypoxemia J96.01 Elevated d-dimer R79.89 Malignant neoplasm of right upper lobe of lung C34.11 Hyperlipemia E78.5 BPH (benign prostatic hyperplasia) N40.0 Hypothyroidism E03.9
[2020-02-22] MEDS ORDERED: OPTIRAY 320 125ml IV ONE (21:55)
[2020-02-22] MEDS ORDERED: ONDANSETRON INJ 2 MG/ML 2 ML VIAL IV PRN (22:32)
[2020-02-22] MEDS ORDERED: ACETAMINOPHEN 325 MG TAB PO PRN (22:32)
[2020-02-22] MEDS: SODIUM CHLORIDE 0.9% 10ML FLUSH IV SCH (23:38)
[2020-02-22] MEDS: diphenhydrAMINE Capsule 25 MG CAP PO SCH (23:38)
[2020-02-22] MEDS: SIMVASTATIN 10 MG TAB PO SCH (23:39)
[2020-02-22] MEDS: TAMSULOSIN HCL 0.4 MG CAP PO SCH (23:39)
[2020-02-22] MEDS: FINASTERIDE 5 MG TAB PO SCH (23:39)
[2020-02-23] MEDS ORDERED: REMDESIVIR 200 MG in SODIUM CHLORIDE 0.9% 210 ML IV ONE
[2020-02-23 01:40] LABS: Appearance Urine Clear (Clear); Bilirubin Urine Negative (Negative); Blood Urine Negative (Negative); Color Urine Yellow; Glucose Urine UA Negative (Negative); Ketones Urine Trace (Negative); Leukocyte Esterase Urine Negative (Negative); Nitrite Urine Negative (Negative); Protein Urine Negative (Negative); Specific Gravity Urine 1.037 (1.000-1.030); Urobilinogen Urine Negative (Negative)
[2020-02-23] MEDS: LEVOTHYROXINE SODIUM 75 MCG TABLET PO SCH (06:09)
[2020-02-23 07:12] LABS: Hematocrit (blood only) 46.6 % (42-52); Hemoglobin 15.9 g/dL (14.0-18.0); Immature Granulocytes # (auto) 0.01 K/uL (0.00-0.02); Immature Granulocytes % (auto) 0.2 %; Lymphocytes # (auto) 0.62 K/uL (1.2-3.4); Lymphocytes % (auto) 12.6 %; Mean Corpuscular Hemoglobin 32.3 pg (25-34); Mean Corpuscular Hgb Conc 34.1 g/dL (32-36); Mean Corpuscular Volume 94.7 fL (80-100); Mean Platelet Volume 10.4 fL (7.4-10.4); Monocytes # (auto) 0.55 K/uL (0.11-0.59); Monocytes % (auto) 11.2 %; Neutrophils # (auto) 3.75 K/uL (1.4-6.5); Platelet Count 176 K/uL (130-400); RDW Coefficient of Variation 12.7 % (11.5-14.5); RDW Standard Deviation 44.5 fL (36.4-46.3); Red Blood Count 4.92 M/uL (4.7-6.1); White Blood Count 4.93 K/uL (4.8-10.8)
[2020-02-23] MEDS: ALBUTEROL HFA 8 GM INHALER INH SCH ×4 (07:20→20:03)
--- NOTE | 2020-02-23 07:43 | Electrocardiogram Report ---
Test Reason : Blood Pressure : / mmHG Vent. 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 lead placement vs. LVH Abnormal ECG When compared with ECG of 11-MAY-2016 13:08, Premature supraventricular complexes are now Present Confirmed by William Poole ([id number]) on 02/23/2020 7:43:28 AM Referred By: REFERRED SELF Confirmed By:Baljit Poole
--- NOTE | 2020-02-23 07:48 | CT Scan Report ---
CT ANGIOGRAM OF THE CHEST CLINICAL HISTORY: Dyspnea. Covid. Lung cancer. COMPARISON STUDY: Chest CT dated 05/11/2016. PET/CT dated 01/03/2020. TECHNIQUE: Following the IV administration of 116 cc of Optiray 320, CT angiogram of the chest was pe rformed from the upper abdomen to the thoracic inlet utilizing the pulmonary embolus protocol. Images are reviewed in the axial, sagittal, and coronal planes. 3-D MIPS images are created and assessed. I V contrast was administered without complication. A dose lowering technique was utilized adhering to the principles of ALARA. The examination is compromised by motion artifact. CT DOSE: 446.64 mGycm FINDINGS: Thyroid: Atrophic. Thoracic aorta: There is atherosclerotic calcification of the thoracic aorta, with is normal in calib er and demonstrates 4-vessel variant arch anatomy. No dissection is seen. Pulmonary vasculature: The pulmonary trunk is normal in caliber. There are no filling defects identif ied in main, lobar, or segmental pulmonary branches to suggest pulmonary embolus. Heart: The heart is normal in size and without pericardial effusion. Lungs and pleural spaces: Emphysematous change is noted. A groundglass lesion in the right upper lobe is similar appearance to 01/03/2020 examination. This measures approximately 4 x 2 cm as seen on esther ge #[id number]. Foci of parenchyma scarring and atelectasis are seen throughout both lungs. Mild patchy grou ndglass consolidation is seen peripherally within both lungs. No pleural effusion is identified. Secr etions are noted in the distal trachea. Mediastinum: There are nonspecific subcentimeter mediastinal lymph nodes. [place]: Clear. Axillae: There is no axillary lymphadenopathy. Upper abdomen: There is a small hiatal hernia. Partially visualized upper abdominal viscera is otherw ise within normal limits. Skeletal structures: The skeletal structures are osteopenic. Arthritic changes seen in the shoulders with calcified joint bodies noted on the right. Degenerative change is seen throughout the thoracic s pine. No lytic or blastic bony lesions are seen. IMPRESSION: 1. There is no evidence of pulmonary embolus in the main, lobar, or segmental pulmonary arteries. 2. Emphysema. 3. A right upper lobe groundglass lesion is unchanged from prior studies and consistent with the know n history of lung cancer. 4. There is mild subpleural groundglass consolidation seen throughout both lungs, likely correspondin g to an infectious/inflammatory pneumonitis. 5. Subcentimeter mediastinal lymph nodes are nonspecific and may be on a reactive basis. 6. Additional findings as above. ACT 112: Negative or not required by law. Electronically signed by: Pardeep Moore M.D. 02/23/2020 7:47 AM
[2020-02-23 07:55] LABS: Creatinine Clr Calc Pharmacy 48.9 ml/min; Est GFR (African American) 77.9; Est GFR (Non-African American) 67.2; Magnesium 2.4 mg/dl (1.8-2.4); Potassium 4.1 mmol/L (3.5-5.1)
[2020-02-23 07:57] LABS: Albumin Globulin Ratio 0.8 (0.9-2); Bilirubin,Total 0.4 mg/dl (0.2-1); Globulin 3.7 gm/dl (2.5-4.0); Total Protein 6.7 gm/dl (6.4-8.2)
[2020-02-23] MEDS: ENOXAPARIN INJ 30 MG/0.3 ML SYR SQ SCH (09:00)
[2020-02-23] MEDS: dexAMETHasone 6 MG in SYRINGE 0 ML IV SCH (09:00)
--- NOTE | 2020-02-23 15:10 | Hospitalist Progress Note ---
Date of Service February 23, 2020 Assessment & Plan (1) Pneumonia due to COVID-19 virus: Pneumonia due to COVID-19 virus. - Continue dexamethasone 6 mg IV daily (End date: 03/02/2020) - Continue remdesivir IV per protocol (End date: 02/25) - Continue Ventolin HFA 2 puffs 4 times daily and every 2 hours as needed - Nasal cannula oxygen, titrate to keep pulse ox 94 to 95%. - Chest x-ray demonstrated right upper lobe scarring associated with treatment by radiation for malignancy. (2) Acute respiratory failure with hypoxemia: See above (3) Malignant neoplasm of right upper lobe of lung: Underwent right chest radiation. At present, the patient reports that he will NOT pursue further radiation or chemotherapy. - Outpatient follow-up (4) Hyperlipemia: - Continue simvastatin 10 mg daily (5) BPH (benign prostatic hyperplasia): - Continue finasteride 5 mg every evening and tamsulosin 0.4 mg every evening (6) Hypothyroidism: No TSH in chart. - Continue levothyroxine 75 mcg every morning - Recheck TSH (7) DVT prophylaxis: Lovenox 30 mg SQ daily Admission and Anticipated Discharge Date Admission Date: February 22, 2020 Subjective Feels fairly well. No major concerns today. Reports no fevers/chills, chest pain, shortness of breath, abdominal pain, nausea, or vomiting. Physical Exam Constitutional: WD/WN, vitals as above Eyes: EOM intact bilaterally; no conjunctival abnormality ENMT: external ear and nose normal, oropharynx normal Neck: trachea midline, no thyromegaly normal visual inspection Respiratory: normal respiratory effort, lungs clear to auscultation no respiratory distress Cardiovascular: RRR, no murmur, no edema Gastrointestinal (Abdomen): Inspection/Auscultation: abdomen normal to inspection; abdomen not distended Musculoskeletal: no cyanosis or clubbing, extremities motor strength 5/5 Skin: no rashes, warm and dry Neurologic: moves all extremities and awake Psychiatric: Orientation: alert, oriented to person and cooperative Results & Data Results & Data ([facility]) Vital Signs (Past 12 Hours) Vital Signs Temp Pulse Pulse Resp BP Pulse Ox 02/23/20 11:15 36.5 C 80 17 98/74 L 90 02/23/20 11:01 81 20 92 02/23/20 08:03 36.5 C 76 20 108/66 95 02/23/20 08:00 86 02/23/20 07:20 83 20 95 02/23/20 06:04 68 02/23/20 03:47 36.4 C L 67 20 117/73 92 PG Care Time/CCT Total # of Minutes Spent Total Time Spent with Patient: Total time spent is greater than 50% in coordination of care (as documented) at patient's floor/unit and/or counseling patient: Coding Level of Care Code 10740 Subseq Hosp Care Lvl 2 Diagnoses Pneumonia due to COVID-19 virus U07.1; J12.89 Acute respiratory failure with hypoxemia J96.01 Malignant neoplasm of right upper lobe of lung C34.11 Hyperlipemia E78.5 BPH (benign prostatic hyperplasia) N40.0 Hypothyroidism E03.9 DVT prophylaxis Z29.9
[2020-02-23] MEDS: FINASTERIDE 5 MG TAB PO SCH (20:15)
[2020-02-23] MEDS: TAMSULOSIN HCL 0.4 MG CAP PO SCH (20:15)
[2020-02-23] MEDS: SODIUM CHLORIDE 0.9% 10ML FLUSH IV SCH (20:15)
[2020-02-23] MEDS: diphenhydrAMINE Capsule 25 MG CAP PO SCH (20:15)
[2020-02-23] MEDS: SIMVASTATIN 10 MG TAB PO SCH (20:15)
[2020-02-23] MEDS: REMDESIVIR 100 MG in SODIUM CHLORIDE 0.9% 230 ML IV SCH (20:16)
[2020-02-24 04:35] LABS: Basophils # (auto) 0.01 K/uL (0-0.2); Basophils % (auto) 0.1 %; Hematocrit (blood only) 44.3 % (42-52); Hemoglobin 15.3 g/dL (14.0-18.0); Immature Granulocytes # (auto) 0.03 K/uL (0.00-0.02); Immature Granulocytes % (auto) 0.2 %; Lymphocytes # (auto) 1.87 K/uL (1.2-3.4); Lymphocytes % (auto) 15.5 %; Mean Corpuscular Hemoglobin 31.9 pg (25-34); Mean Corpuscular Hgb Conc 34.5 g/dL (32-36); Mean Corpuscular Volume 92.5 fL (80-100); Mean Platelet Volume 10.6 fL (7.4-10.4); Monocytes # (auto) 0.76 K/uL (0.11-0.59); Monocytes % (auto) 6.3 %; Neutrophils # (auto) 9.36 K/uL (1.4-6.5); Neutrophils % (auto) 77.9 %; Platelet Count 190 K/uL (130-400); RDW Coefficient of Variation 12.5 % (11.5-14.5); RDW Standard Deviation 42.4 fL (36.4-46.3); Red Blood Count 4.79 M/uL (4.7-6.1); White Blood Count 12.03 K/uL (4.8-10.8)
[2020-02-24 04:57] LABS: BUN Creatinine Ratio 22.3 (10-20); Creatinine Clr Calc Pharmacy 41.5 ml/min; Est GFR (African American) 64.4; Est GFR (Non-African American) 55.5; Magnesium 2.3 mg/dl (1.8-2.4); Potassium 3.8 mmol/L (3.5-5.1)
[2020-02-24 17:15] LABS: Albumin Globulin Ratio 0.8 (0.9-2); Bilirubin,Total 0.4 mg/dl (0.2-1); Globulin 3.6 gm/dl (2.5-4.0); Thyroid Stimulating Hormone 0.843 uIu/ml (0.300-4.500); Total Protein 6.6 gm/dl (6.4-8.2)
[2020-02-24] MEDS: ENOXAPARIN INJ 30 MG/0.3 ML SYR SQ SCH (17:22)
[2020-02-24] MEDS: ALBUTEROL HFA 8 GM INHALER INH SCH ×2 (17:22→19:19)
[2020-02-24] MEDS: dexAMETHasone 6 MG in SYRINGE 0 ML IV SCH (17:22)
[2020-02-24] MEDS: LEVOTHYROXINE SODIUM 75 MCG TABLET PO SCH (17:22)
[2020-02-24] MEDS: REMDESIVIR 100 MG in SODIUM CHLORIDE 0.9% 230 ML IV SCH (20:04)
[2020-02-24] MEDS: SIMVASTATIN 10 MG TAB PO SCH (20:05)
[2020-02-24] MEDS: SODIUM CHLORIDE 0.9% 10ML FLUSH IV SCH (20:05)
[2020-02-24] MEDS: TAMSULOSIN HCL 0.4 MG CAP PO SCH (20:05)
[2020-02-24] MEDS: diphenhydrAMINE Capsule 25 MG CAP PO SCH (20:05)
[2020-02-24] MEDS: FINASTERIDE 5 MG TAB PO SCH (20:05)
[2020-02-25] MEDS: LEVOTHYROXINE SODIUM 75 MCG TABLET PO SCH (05:55)
[2020-02-25 07:29] LABS: Basophils # (auto) 0.01 K/uL (0-0.2); Basophils % (auto) 0.1 %; Hematocrit (blood only) 44.8 % (42-52); Hemoglobin 15.1 g/dL (14.0-18.0); Immature Granulocytes # (auto) 0.03 K/uL (0.00-0.02); Immature Granulocytes % (auto) 0.4 %; Lymphocytes # (auto) 1.09 K/uL (1.2-3.4); Lymphocytes % (auto) 12.8 %; Mean Corpuscular Hemoglobin 31.6 pg (25-34); Mean Corpuscular Hgb Conc 33.7 g/dL (32-36); Mean Corpuscular Volume 93.7 fL (80-100); Mean Platelet Volume 10.8 fL (7.4-10.4); Monocytes # (auto) 1.79 K/uL (0.11-0.59); Neutrophils # (auto) 5.61 K/uL (1.4-6.5); Neutrophils % (auto) 65.7 %; Platelet Count 195 K/uL (130-400); RDW Coefficient of Variation 12.7 % (11.5-14.5); RDW Standard Deviation 43.9 fL (36.4-46.3); Red Blood Count 4.78 M/uL (4.7-6.1); White Blood Count 8.53 K/uL (4.8-10.8)
[2020-02-25] MEDS: ALBUTEROL HFA 8 GM INHALER INH SCH ×6 (07:41→18:56)
[2020-02-25 08:09] LABS: Albumin Level 2.9 gm/dl (3.4-5.0); BUN Creatinine Ratio 21.6 (10-20); Calcium 8.2 mg/dl (8.5-10.1); Creatinine Clr Calc Pharmacy 50.7 ml/min; Est GFR (African American) 81.9; Est GFR (Non-African American) 70.7; Magnesium 2.3 mg/dl (1.8-2.4); Potassium 3.8 mmol/L (3.5-5.1)
[2020-02-25 08:12] LABS: Albumin Globulin Ratio 0.9 (0.9-2); Bilirubin,Total 0.7 mg/dl (0.2-1); Globulin 3.4 gm/dl (2.5-4.0); Total Protein 6.3 gm/dl (6.4-8.2)
[2020-02-25] MEDS: ENOXAPARIN INJ 30 MG/0.3 ML SYR SQ SCH (09:32)
[2020-02-25] MEDS: dexAMETHasone 6 MG in SYRINGE 0 ML IV SCH (09:33)
--- NOTE | 2020-02-25 15:34 | Hospitalist Progress Note ---
Date of Service February 25, 2020 Assessment & Plan (1) Pneumonia due to COVID-19 virus: Pneumonia due to COVID-19 virus. - Continue dexamethasone 6 mg IV daily (End date: 03/02/2020) - Continue remdesivir IV per protocol (End date: 02/25) - Continue Ventolin HFA 2 puffs 4 times daily and every 2 hours as needed - Nasal cannula oxygen, titrate to keep pulse ox 94 to 95%. - Chest x-ray demonstrated right upper lobe scarring associated with treatment by radiation for malignancy. - Doing well today. No major concerns. Would like to go home. (2) Acute respiratory failure with hypoxemia: See above (3) Malignant neoplasm of right upper lobe of lung: Underwent right chest radiation. At present, the patient reports that he will NOT pursue further radiation or chemotherapy. - Outpatient follow-up (4) Hyperlipemia: - Continue simvastatin 10 mg daily (5) BPH (benign prostatic hyperplasia): - Continue finasteride 5 mg every evening and tamsulosin 0.4 mg every evening (6) Hypothyroidism: TSH was 0.8 this admission. - Continue levothyroxine 75 mcg every morning (7) DVT prophylaxis: Lovenox 30 mg SQ daily Admission and Anticipated Discharge Date Admission Date: February 22, 2020 Subjective Doing well today. He is feeling well. No shortness of breath. Reports no fevers/chills, chest pain, shortness of breath, abdominal pain, nausea, or vomiting. Physical Exam Constitutional: WD/WN, vitals as above Eyes: EOM intact bilaterally; no conjunctival abnormality ENMT: external ear and nose normal, oropharynx normal Neck: trachea midline, no thyromegaly normal visual inspection Respiratory: normal respiratory effort, lungs clear to auscultation no respiratory distress Cardiovascular: RRR, no murmur, no edema Gastrointestinal (Abdomen): Inspection/Auscultation: abdomen normal to inspection; abdomen not distended Musculoskeletal: no cyanosis or clubbing, extremities motor strength 5/5 Skin: no rashes, warm and dry Neurologic: moves all extremities and awake Psychiatric: Orientation: alert, oriented to person and cooperative Results & Data Results & Data ([facility]) Vital Signs (Past 12 Hours) Vital Signs Temp Pulse Pulse Resp BP Pulse Ox Pulse Ox 02/25/20 15:20 36.4 C L 77 19 117/69 93 02/25/20 11:47 36.6 C 81 19 115/61 88 L 02/25/20 11:39 85 18 89 L 02/25/20 08:04 36.6 C 75 19 124/61 91 02/25/20 08:00 74 90 02/25/20 07:41 81 20 93 PG Care Time/CCT Total # of Minutes Spent Total Time Spent with Patient: Total time spent is greater than 50% in coordination of care (as documented) at patient's floor/unit and/or counseling patient: Coding Level of Care Code 53531 Subseq Hosp Care Lvl 2 Diagnoses Pneumonia due to COVID-19 virus U07.1; J12.89 Acute respiratory failure with hypoxemia J96.01 Malignant neoplasm of right upper lobe of lung C34.11 Hyperlipemia E78.5 BPH (benign prostatic hyperplasia) N40.0 Hypothyroidism E03.9 DVT prophylaxis Z29.9
[2020-02-25] MEDS: diphenhydrAMINE Capsule 25 MG CAP PO SCH (19:19)
[2020-02-25] MEDS: FINASTERIDE 5 MG TAB PO SCH (19:19)
[2020-02-25] MEDS: TAMSULOSIN HCL 0.4 MG CAP PO SCH (19:19)
[2020-02-25] MEDS: SIMVASTATIN 10 MG TAB PO SCH (19:19)
[2020-02-25] MEDS: REMDESIVIR 100 MG in SODIUM CHLORIDE 0.9% 230 ML IV SCH (19:42)
[2020-02-25] MEDS: SODIUM CHLORIDE 0.9% 10ML FLUSH IV SCH (19:42)
[2020-02-26] MEDS: LEVOTHYROXINE SODIUM 75 MCG TABLET PO SCH (06:10)
[2020-02-26] MEDS: ALBUTEROL HFA 8 GM INHALER INH SCH ×2 (07:27→11:33)
[2020-02-26] MEDS: ENOXAPARIN INJ 30 MG/0.3 ML SYR SQ SCH (07:36)
[2020-02-26] MEDS: dexAMETHasone 6 MG in SYRINGE 0 ML IV SCH (07:36)
[2020-02-26] MEDS ORDERED: ALBUTEROL HFA 8 GM INHALER INH PRN (11:44)
--- NOTE | 2020-02-26 18:31 | Discharge Summary ---
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 He presents to the emergency department as referral from urgent care for fever and hypoxia. The patient himself denies any symptomatology of any sort. [facility] to [facility], but referred him to acute care. Acute care then referred him to the emergency department due to the above symptoms. The patient denies chest pain, shortness of breath, loss of taste or smell, fatigue, and cannot explain why there was originally a call [facility], and why he was sent to the ED from acute care. Principal Diagnosis Covid-19 pneumonia Discharge Exam Constitutional WD/WN, vitals as above Eyes EOM intact bilaterally; no conjunctival abnormality ENMT external ear and nose normal, oropharynx normal Neck trachea midline, no thyromegaly normal visual inspection Respiratory normal respiratory effort, lungs clear to auscultation no respiratory distress Cardiovascular RRR, no murmur, no edema Gastrointestinal (Abdomen) Inspection/Auscultation: abdomen normal to inspection; abdomen not distended Musculoskeletal no cyanosis or clubbing, extremities motor strength 5/5 Skin no rashes, warm and dry Neurologic moves all extremities and awake Psychiatric Orientation: alert, oriented to person and cooperative Discharge Data Allergies Allergy/AdvReac Type Severity Reaction Status Date / Time No Known Allergies Allergy Verified 02/22/20 19:26 Consultations 02/22/20 19:34 ED Decision to Admit Stat 02/22/20 22:32 Consult Case Management - Discharge Planning Routine Ordered Studies 02/22/20 20:52 CT angio chest PE protocol Urgent Hospital Course (1) Pneumonia due to COVID-19 virus: Pneumonia due to COVID-19 virus. - Continue dexamethasone 6 mg IV daily (End date: 03/02/2020) - Finished remdesivir IV per protocol (End date: 02/25) - Continue Ventolin HFA 2 puffs 4 times daily and every 2 hours as needed - Nasal cannula oxygen, titrate to keep pulse ox 94 to 95%. - Chest x-ray demonstrated right upper lobe scarring associated with treatment by radiation for malignancy. - He was comfortable over the weekend, but on Wednesday had a temporary increase in his O2 to 5L NC at rest. This was tapered down mid-morning back to 2L which was his level on Wednesday & Wednesday. - Discharged on home O2 and remaining dexamethasone course. He only needed 2L NC at rest, but 6L on ambulation. I did ask him to stay another night or two, but his is not feeling well (obviously concerning for Covid), and he was adamant that he would go home today. [facility], so we arranged home O2 through the [facility] and he went home. (2) Acute respiratory failure with hypoxemia: See above (3) Malignant neoplasm of right upper lobe of lung: Underwent right chest radiation. At present, the patient reports that he will NOT pursue further radiation or chemotherapy. - Outpatient follow-up (4) Hyperlipemia: - Continue simvastatin 10 mg daily (5) BPH (benign prostatic hyperplasia): - Continue finasteride 5 mg every evening and tamsulosin 0.4 mg every evening (6) Hypothyroidism: TSH was 0.8 this admission. - Continue levothyroxine 75 mcg every morning (7) DVT prophylaxis: Lovenox 30 mg SQ daily Total Time Total Time Spent Total Time Spent (In Minutes): 35 Discharge Plan Discharge Items Patient Disposition: Home - Home Health Services Reason For Visit: COVID-19 INFECTION Discharge Diagnosis: Covid-19 pneumonia Activity: Resume your previous activity Non-emergency contact: Primary Care Provider Call non-emergency contact if: your symptoms worsen and your temperature is above 101 Follow-up/Referrals: Quoc Colunga M.D. [Primary Care Provider] - (WE COULD NOT GET A HOLD OF YOUR PRIMARY CARD DOCTOR, PLEASE CALL AND MAKE A FOLLOW UP APT.) Diet: Regular Addtl Attending Provider Instructions: You were admitted to the hospital with Covid-19 pneumonia. You did need oxygen, but luckily, you have remained stable on a fairly modest amount. 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 In any event, you are doing well and stable to go home today. Please finish the course of dexamethasone (steroid). You will take your next dose tomorrow morning and for the next 4 days, then finish. Take it early in the morning to avoid causing sleep troubles. Please see [facility] sometime after March 06 to test your oxygen levels and see how you are doing. In the meantime, please quarantine at home to avoid giving the virus to others. If your hasn't had symptoms or tested positive, please isolate from her as well to avoid spreading the virus to her. If she has tested *positive* for Covid, you CANNOT pass the virus back and forth, so it would be safe to be with her. Please call your doctor, come to the hospital, or call if you have worsening shortness of breath, fevers, dizziness, lightheadedness, or other concerning symptoms. Pending Studies at Discharge: No Stand-Alone Forms: My [facility] [employer], Smoking Cessation Medications and DC Order Prescriptions: New dexamethasone 6 mg tablet 6 mg PO DAILY Qty: 5 RF: 0 Continued diphenhydramine HCl [NightTime Sleep Aid (diphen)] 50 mg capsule 50 mg PO HS RF: 0 finasteride 5 mg tablet 5 mg PO QPM RF: 0 levothyroxine 75 mcg capsule 75 mcg PO QAM RF: 0 simvastatin 20 mg tablet 10 mg PO QPM RF: 0 tamsulosin 0.4 mg capsule 0.4 mg PO QPM RF: 0 Discharge Orders: Discharge Order (Routine); Ordered 02/26/20 Ordered By: Cong Garcia Admission Data Admit Date/Time: 02/22/20 20:28 Attending Provider: Cong Garcia Admit Provider: Daren Gutiérrez Primary Care Provider: Quoc Colunga Other Providers: Cong Garcia Other Interventions: Discharge Summary Assessment (RN) Last Done: 02/26/20 14:52 Coding Level of Care Code D/C Day Management >30 mins Diagnoses Pneumonia due to COVID-19 virus U07.1; J12.89 Acute respiratory failure with hypoxemia J96.01 Malignant neoplasm of right upper lobe of lung C34.11 Hyperlipemia E78.5 BPH (benign prostatic hyperplasia) N40.0 Hypothyroidism E03.9 DVT prophylaxis Z29.9
[2020-02-26] MEDS: SIMVASTATIN 10 MG TAB PO SCH (20:33)
[2020-02-26] MEDS: TAMSULOSIN HCL 0.4 MG CAP PO SCH (20:33)
[2020-02-26] MEDS: FINASTERIDE 5 MG TAB PO SCH (20:33)
[2020-02-26] MEDS: diphenhydrAMINE Capsule 25 MG CAP PO SCH (20:33)
[2020-02-26] MEDS: REMDESIVIR 100 MG in SODIUM CHLORIDE 0.9% 230 ML IV SCH (20:34)
[2020-02-26] MEDS: SODIUM CHLORIDE 0.9% 10ML FLUSH IV SCH (20:35)
[2020-02-27 05:24] VITALS: TEMP 97.7
[2020-02-27] MEDS: LEVOTHYROXINE SODIUM 75 MCG TABLET PO SCH (05:33)
--- NOTE | 2020-02-27 07:50 | Hospitalist Progress Note ---
Date of Service February 26, 2020 Assessment & Plan (1) Pneumonia due to COVID-19 virus: Pneumonia due to COVID-19 virus. - Continue dexamethasone 6 mg IV daily (End date: 03/02/2020) - Finished remdesivir IV per protocol (End date: 02/25) - Continue Ventolin HFA 2 puffs 4 times daily and every 2 hours as needed - Nasal cannula oxygen, titrate to keep pulse ox 94 to 95%. - Chest x-ray demonstrated right upper lobe scarring associated with treatment by radiation for malignancy. - He was comfortable over the weekend, but on Wednesday had a temporary increase in his O2 to 5L NC at rest. This was tapered down mid-morning back to 2L which was his level on Wednesday & Wednesday. - Discharged on home O2 and remaining dexamethasone course. He only needed 2L NC at rest, but 6L on ambulation. However, his ended up in the ER and was not able to take him home. Will determine course today. (2) Acute respiratory failure with hypoxemia: See above (3) Malignant neoplasm of right upper lobe of lung: Underwent right chest radiation. At present, the patient reports that he will NOT pursue further radiation or chemotherapy. - Outpatient follow-up (4) Hyperlipemia: - Continue simvastatin 10 mg daily (5) BPH (benign prostatic hyperplasia): - Continue finasteride 5 mg every evening and tamsulosin 0.4 mg every evening (6) Hypothyroidism: TSH was 0.8 this admission. - Continue levothyroxine 75 mcg every morning (7) DVT prophylaxis: Lovenox 30 mg SQ daily Admission and Anticipated Discharge Date Admission Date: February 22, 2020 Subjective Feels well. Feels "strong" and wants to go home. Despite some extra need for O2, he has no further shortness of breath. Reports no fevers/chills, chest pain, abdominal pain, nausea, or vomiting. Physical Exam Constitutional: WD/WN, vitals as above Eyes: EOM intact bilaterally; no conjunctival abnormality ENMT: external ear and nose normal, oropharynx normal Neck: trachea midline, no thyromegaly normal visual inspection Respiratory: normal respiratory effort, lungs clear to auscultation no respiratory distress Cardiovascular: RRR, no murmur, no edema Gastrointestinal (Abdomen): Inspection/Auscultation: abdomen normal to inspection; abdomen not distended Musculoskeletal: no cyanosis or clubbing, extremities motor strength 5/5 Skin: no rashes, warm and dry Neurologic: moves all extremities and awake Psychiatric: Orientation: alert, oriented to person and cooperative Results & Data Results & Data ([facility]) Vital Signs (Past 12 Hours) Vital Signs Temp Pulse Pulse Resp BP Pulse Ox 02/27/20 07:06 74 02/27/20 05:22 36.5 C 68 18 132/75 91 02/26/20 23:59 68 02/26/20 23:22 36.8 C 70 18 107/63 93 02/26/20 20:23 36.5 C 91 H 19 110/69 90 PG Care Time/CCT Total # of Minutes Spent Total Time Spent with Patient: Total time spent is greater than 50% in coordination of care (as documented) at patient's floor/unit and/or counseling patient: Coding Level of Care Code 45967 Subseq Hosp Care Lvl 2 Diagnoses Pneumonia due to COVID-19 virus U07.1; J12.89 Acute respiratory failure with hypoxemia J96.01 Malignant neoplasm of right upper lobe of lung C34.11 Hyperlipemia E78.5 BPH (benign prostatic hyperplasia) N40.0 Hypothyroidism E03.9 DVT prophylaxis Z29.9
[2020-02-27 07:55] VITALS: BP 123/78; PULSE 72; O2SAT 86
[2020-02-27] MEDS: ENOXAPARIN INJ 30 MG/0.3 ML SYR SQ SCH (08:08)
[2020-02-27] MEDS: dexAMETHasone 6 MG in SYRINGE 0 ML IV SCH (08:08)
== END 2020-02-27 12:58 | disposition home or self-care (01) | DRG 177 ==
LOC: ED 17:11 → 2E 20:28 → SUATTDRO 20:28 → 2E 20:45